=== PATIENT | female | born 1990 | race Asian ===

== ENCOUNTER 2016-07-27 12:13 | Emergency (ER) | payer MEDICAID ==
[2016-07-27 14:51] VITALS: BP 135/62
--- NOTE | 2016-07-29 12:15 | ER ---
DATE SEEN: 07/27/2016 TIME SEEN: The patient was seen at 1230 hours. HISTORY OF PRESENT ILLNESS: The patient has a multiplicity of complaints. A 25 - year-old comes in with history of 1, para 1, single woman with complaints of right shoulder pain, lower back pain, watery vaginal discharge, right posterior iliac crest inferior flank discomfort between the midscapular line and the mid axillary line discomfort. 1) mild right shoulder pain. No unusual heavy lifting or straining. She has a 1 -year old who she carries mostly on her left shoulder and left hip. She notes she has mild myalgia. She is more tired than usual with increased fatigue and has been sleepwalking for the last 2 weeks. 2)She wonders if there is any relationship to the fatigue, to her tiredness, and the muscle and shoulder discomfort in the left arm. She denies paresis, weakness, numbness, shoulder trauma, fall, hyperextension injuries, or [id number] injury with throwing activity. 3) Low back pain. The back pain she describes is right posterolateral flank above the iliac crest from the mid iliac crest to the scapular line. It hurts when she turns or twists. No injury or heavy lifting. No falls. No slipping on the ice. No history of low back pain or pain radiating down the back to her lower extremities. No history of weight loss or difficulty in managing her bladder. No incontinence. She describes the pain is 9/10 and "pulsating" intermittently. It is more increased variable and frequency when she is turning, moving, and active. No history of heavy lifting. No history of renal stones. 4)watery vaginal discharge. No history of recent antibiotics, douching, using unusual condoms, change in food or diet or medication, use of recent antibiotics or multiple sex partners. The watery secretions are not odorous. 5)She denies increased stress. PAST MEDICAL HISTORY: Denies drinking alcohol. Smokes occasionally. She has depression. 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 She is single. Weight is variable, 145 pounds, increases and decreases, but pretty much 145 pounds. REVIEW OF SYSTEMS: She also has, on review of systems, areas to the left of her side of the uatsdin region, anterior uatsdin, about the ocular angle level and approximately 3 cm to 4 cm posterior to the lateral ocular angle, mild tenderness. She is noted to have headaches that seem to occur in this area. PHYSICAL EXAMINATION: VITAL SIGNS: Blood pressure 120/71, heart rate 100, respirations 18, oxygen saturation 97%, and temperature 36.8 degrees centigrade. Weight 65.71 kg. GENERAL: Alert woman. She has quite increased fullness of the face. For her height, seems she is slightly overweight. HEENT: PERRLA intact. Pharynx without abnormality. No thyromegaly or masses in neck. NECK: No cervical adenopathy. LUNGS: Clear to auscultation without rales, rhonchi, or wheezes. HEART: S1, S2. No murmur. Regular rate and rhythm. ABDOMEN: Soft. No guarding. No abdominal discomfort. Mild discomfort to the right lateral mid posterior flank between the mid axillary line to the scapular line and no focal tenderness, mild generalized tenderness. When turning or rotating or bending to the side, the stretching does cause more discomfort. No focal tenderness on the iliac crest or iliac wing. NEUROLOGIC: Deep tendon reflexes normal. Cranial nerves 2 through 12 intact. Strength intact. PELVIC: With nurse present in the room, pelvic exam was performed. The labia are normal in appearance. No unusual swelling or redness. Vaginal mucosa normal appearance. She has significant watery discharge deep within the vagina. This was sent for further evaluation. The nucleic acid studies for Trichomonas and other studies are pending. There were no yeast on the EVAN smear. Other data, uterus is not enlarged. Adnexa without tenderness. Vaginal mucosa looks normal. It is not raw or appearance of sandpaper. LABORATORY FINDINGS: White count 12,200, PMNs 74, lymphs 18, monos 7, and hemoglobin 12.2. Complete metabolic panel normal except for sodium 134, chloride is 98. Slightly elevated AST is 38 and ALT 37. Total protein elevated at 8.2. Urinalysis; large amount of leukocyte esterase, 50-75 wbc's, and moderate bacteria. ASSESSMENT: 1. Probable urinary tract infection. I am going to treat with Septra DS 1 b.i.d. for 5 days. 2. Vaginal fluid, etiology indeterminate. No evidence for yeast on the EVAN smear, but other studies pending. Perhaps Trichomonas or Gardnerella vaginalis is the etiology for the patient's unusual discharge. 3. Mild right shoulder discomfort. 4. Mild low back discomfort. 5. Right lateral flank discomfort secondary to muscle strain, doubt renal stones. There is no hematuria. She does not have to have hematuria to have renal stones. 6. Mildly overweight. PLAN: The patient reassured. ADDITIONAL COMMENT: The father had CVA. Mother of severe hepatitis and cirrhosis. Mother had cirrhosis secondary to alcoholism. The patient has had previous and cholecystectomy. Follow up with doctor in a week. /[id number] CHRIS/SD SAENZ
== END 2016-07-27 14:40 | disposition home or self-care (01) ==
LOC: FB.ED 12:13
DX: N89.8 Other specified noninflammatory disorders of vagina (principal); M25.511 Pain in right shoulder; M54.5 Low back pain; E66.3 Overweight; F32.9 Major depressive disorder, single episode, unspecified
CPT/HCPCS: 36415; 80053; 81001; 81025; 85025; 86140; 87086; 87088; 87186; 87480; 87491; 87510; 87591; 87798; 99283

== ENCOUNTER 2016-08-20 14:04 | Emergency (ER) | payer MEDICAID ==
[2016-08-20] MEDS ORDERED: Ondansetron 4 MG Tab.DIS PO ONE (14:55)
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
[2016-08-20 17:45] VITALS: BP 123/94
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
== END 2016-08-20 16:14 | disposition home or self-care (01) ==
LOC: FB.ED 14:04
DX: A08.4 Viral intestinal infection, unspecified (principal); F41.9 Anxiety disorder, unspecified; F32.9 Major depressive disorder, single episode, unspecified; Z90.49 Acquired absence of other specified parts of digestive tract; Z88.6 Allergy status to analgesic agent; Z88.1 Allergy status to other antibiotic agents
CPT/HCPCS: 76830; 76857; 81025; 99284; A9270

== ENCOUNTER 2017-03-28 06:28 | Emergency (ER) | payer MEDICAID ==
[2017-03-28] MEDS ORDERED: Ondansetron 4 MG/2 ML SDV IVPUSH ONE (06:49)
[2017-03-28] MEDS ORDERED: Sodium Chloride 0.9% 10 ML Syringe FLUSH PRN (06:49)
[2017-03-28 06:51] VITALS: BP 108/73
[2017-03-28] MEDS ORDERED: Sodium Chloride 0.9% 1,000 ML IV SCH (07:00)
--- NOTE | 2017-03-28 07:08 | EDM.PDOC ---
ED HPI GENERAL MEDICAL PROBLEM - General Chief Complaint: General Stated Complaint: WEAKNESSS Time Seen by Provider: 03/28/17 06:46 Source of Information: Reports: Patient History Limitations: Reports: No Limitations - History of Present Illness INITIAL COMMENTS - FREE TEXT/NARRATIVE: 26 years old w f came to the ed due to N/V/D for 4 weeks off and on. Pt states, as soon she eats any kind of food, she vomits. Pt did not see a medical doctor for that as of yet. No dizziness or lightheadedness, however. Pt has mild mid upper abdominal pain. Pt denied , trauma, prev surgeries, travel in the past year. Pt denies other acute medical issues. BP 103/73 pulse 73 temp 36.3 RR 18 O2 100% on RA Onset: Unknown/Unsure Onset Date: 03/02/17 Onset Time: 08:00 Duration: Week(s):, Intermittent Location: Reports: Abdomen Quality: Reports: Burning Severity: Mild Improves with: Reports: Other (not eating ) Worsens with: Reports: Eating Context: Reports: Other (eating any kind of food makes he vomit, the diarrhea) Associated Symptoms: Reports: Nausea/Vomiting Abdominal Pain Score (Numeric/FACES): 5 - Related Data Allergies Allergy/AdvReac Type Severity Reaction Status Date / Time acetaminophen [From Tylenol] Allergy Difficulty Verified 03/28/17 06:43 Swallowing azithromycin [From Zithromax] Allergy Cannot Verified 03/28/17 06:43 Remember ibuprofen Allergy Swelling Verified 03/28/17 06:43 Home Meds: Home Meds ARIPiprazole [Abilify] 10 mg PO DAILY 03/28/17 [History] FLUoxetine [PROzac] 10 mg PO DAILY 03/28/17 [History] Famotidine [Pepcid] 20 mg PO BID #20 tablet 03/28/17 [Rx] Past Medical History - Past Health History Medical/Surgical History: Denies Medical/Surgical History Other HEENT History: Lt eye pain Gastrointestinal History: Reports: Cholelithiasis, Gastritis Genitourinary History: Reports: None [employer] History: Reports: Other OB/BYN History: miscarriage x5, Psychiatric History: Reports: Anxiety, Depression, Psych Hospitalization(s), Other (See Below) Other Psychiatric History: hx of alcohol abuse - Infectious Disease History Infectious Disease History: Reports: Mumps - Past Surgical History HEENT Surgical History: Reports: Oral Surgery Female Surgical History: Reports: Section Social & Family History - Family History Family Medical History: Noncontributory - Tobacco Use Smoking Status *Q: Never Smoker Years of Tobacco use: 0 Used Tobacco, but Quit: No Second Hand Smoke Exposure: No - Caffeine Use Caffeine Use: Reports: None - Alcohol Use Days Per Week of Alcohol Use: 1 Number of Drinks Per Day: 4 Total Drinks Per Week: 4 - Recreational Drug Use Recreational Drug Use: No Drug Use in Last 12 Months: Yes Recreational Drug Type: Reports: Marijuana/Hashish Recreational Drug Last Use: Today - Living Situation & Occupation Living situation: Reports: Single Occupation: Employed ED ROS GENERAL - Review of Systems Review Of Systems: See Below Constitutional: Reports: No Symptoms HEENT: Reports: No Symptoms Respiratory: Reports: No Symptoms Cardiovascular: Reports: No Symptoms Endocrine: Reports: No Symptoms GI/Abdominal: Reports: Diarrhea, Nausea, Vomiting : Reports: No Symptoms Musculoskeletal: Reports: No Symptoms Skin: Reports: No Symptoms Neurological: Reports: No Symptoms Psychiatric: Reports: No Symptoms Hematologic/Lymphatic: Reports: No Symptoms Immunologic: Reports: No Symptoms ED EXAM, GENERAL - Physical Exam Exam: See Below Exam Limited By: No Limitations General Appearance: Alert, WD/WN, Mild Distress Eye Exam: Bilateral Eye: Normal Inspection Ears: Normal External Exam Ear Exam: Bilateral Ear: Auricle Normal Nose: Normal Inspection Throat/Mouth: Normal Inspection, Normal Lips, Normal Teeth Head: Atraumatic, Normocephalic Neck: Normal Inspection, Supple, Non-Tender, Full Range of Motion Respiratory/Chest: No Respiratory Distress, Lungs Clear, Normal Breath Sounds, No Accessory Muscle Use, Chest Non-Tender Cardiovascular: Normal Peripheral Pulses, Regular Rate, Rhythm, No Edema, No Gallop, No JVD, No Murmur, No Rub GI/Abdominal: Normal Bowel Sounds, Soft, Non-Tender, No Organomegaly (Female) Exam: Deferred Rectal (Female) Exam: Deferred Back Exam: Normal Inspection, Full Range of Motion Extremities: Normal Inspection, Normal Range of Motion, Non-Tender, No Pedal Edema, Normal Capillary Refill Neurological: Alert, Oriented, CN II-XII Intact, Normal Cognition, Normal Gait, No Motor/Sensory Deficits Psychiatric: Normal Affect, Normal Mood Skin Exam: Warm, Dry, Intact, Normal Color, No Rash Lymphatic: No Adenopathy Course - Vital Signs Text/Narrative:: 26 years old w f came to the ed due to N/V/D for 4 weeks off and on. Pt states, as soon she eats any kind of food, she vomits. Pt did not see a medical doctor for that as of yet. No dizziness or lightheadedness, however. Pt has mild mid upper abdominal pain. Pt denied , trauma, prev surgeries, travel in the past year. Pt denies other acute medical issues. BP 103/73 pulse 73 temp 36.3 RR 18 O2 100% on RA PE: WNWD W F NAD, did not vomit since here in the ed. mild epig. tenderness Labs: Na 136 K 3.6 Cr.0.6 BUN 8 CBC: WBC 5.6 HGB 11.4 Amylase 46 HCG was neg Imaging: Not indicated Impression: Gastroenteritis, dehydration Tx: NS, Zofran, Pepcid Reexam: Improved Plan: D/C with instructions Last Recorded V/S: Last Vital Signs Temp 36.3 C 03/28/17 06:46 Pulse 73 03/28/17 06:46 Resp 18 03/28/17 06:46 BP 108/73 03/28/17 06:46 Pulse Ox 99 03/28/17 06:46 - Orders/Labs/Meds Orders: Active Orders 24 hr Category Date Time Status Saline Lock Insert [OM.PC] Routine Oth 03/28/17 06:49 Ordered Labs: Laboratory Tests 03/28/17 03/28/17 03/28/17 Range/Units 07:00 07:04 07:04 WBC 5.6 (4.5-12.0) X10-3/uL RBC 4.25 (3.23-5.20) x10(6)uL Hgb 11.4 L (11.5-15.5) g/dL Hct 35.1 (30.0-51.3) % MCV 82.7 (80-96) fL MCH 26.9 L (27.7-33.6) pg MCHC 32.5 (32.2-35.4) g/dL RDW 14.8 (11.5-15.5) % Plt Count 285 (125-369) X10(3)uL MPV 8.1 (7.4-10.4) fL Neut % (Auto) 55.7 (46-82) % Lymph % (Auto) 33.4 (13-37) % Beaver % (Auto) 7.5 (4-12) % Eos % (Auto) 2 (1.0-5.0) % Baso % (Auto) 2 (0-2) % Neut # (Auto) 3.1 (1.6-8.3) # Lymph # (Auto) 1.9 (0.6-5.0) # Beaver # (Auto) 0.4 (0.0-1.3) # Eos # (Auto) 0.1 (0.0-0.8) # Baso # (Auto) 0.1 (0.0-0.2) # Sodium 136 (135-145) mmol/L Potassium 3.6 (3.5-5.3) mmol/L Chloride 103 D (100-110) mmol/L Carbon Dioxide 25 (23-29) mmol/L BUN 8 (5-20) mg/dL Creatinine 0.6 (0.6-1.3) mg/dL Est Cr Clr Drug Dosing 103.85 mL/min Estimated GFR (MDRD) > 60 (>60) BUN/Creatinine Ratio 13.3 (9-20) Glucose 106 (80-116) mg/dL Calcium 8.8 (8.6-10.2) mg/dL Amylase 42 (28-100) U/L Urine HCG, Qual (NEGATIVE) 03/28/17 Range/Units 07:10 WBC (4.5-12.0) X10-3/uL RBC (3.23-5.20) x10(6)uL Hgb (11.5-15.5) g/dL Hct (30.0-51.3) % MCV (80-96) fL MCH (27.7-33.6) pg MCHC (32.2-35.4) g/dL RDW (11.5-15.5) % Plt Count (125-369) X10(3)uL MPV (7.4-10.4) fL Neut % (Auto) (46-82) % Lymph % (Auto) (13-37) % Beaver % (Auto) (4-12) % Eos % (Auto) (1.0-5.0) % Baso % (Auto) (0-2) % Neut # (Auto) (1.6-8.3) # Lymph # (Auto) (0.6-5.0) # Beaver # (Auto) (0.0-1.3) # Eos # (Auto) (0.0-0.8) # Baso # (Auto) (0.0-0.2) # Sodium (135-145) mmol/L Potassium (3.5-5.3) mmol/L Chloride (100-110) mmol/L Carbon Dioxide (23-29) mmol/L BUN (5-20) mg/dL Creatinine (0.6-1.3) mg/dL Est Cr Clr Drug Dosing mL/min Estimated GFR (MDRD) (>60) BUN/Creatinine Ratio (9-20) Glucose (80-116) mg/dL Calcium (8.6-10.2) mg/dL Amylase (28-100) U/L Urine HCG, Qual Negative (NEGATIVE) Meds: Medications Discontinued Medications Generic Name Dose Route Start Last Admin Trade Name Freq PRN Reason Stop Dose Admin Famotidine 20 mg 03/28/17 08:09 03/28/17 08:13 Pepcid PO 03/28/17 08:10 20 mg ONETIME ONE Administration Sodium Chloride 1,000 mls @ 999 mls/hr 03/28/17 07:00 03/28/17 07:03 Normal Saline IV 999 mls/hr ASDIRECTED MARGOT Administration Ondansetron HCl 4 mg 03/28/17 06:49 03/28/17 07:04 Zofran IVPUSH 03/28/17 06:50 4 mg ONETIME ONE Administration Sodium Chloride 10 ml 03/28/17 06:49 03/28/17 07:02 Saline Flush FLUSH 10 ml ASDIRECTED PRN Administration Keep Vein Open Departure - Departure Time of Disposition: 08:09 Disposition: Home, Self-Care 01 Condition: Good Clinical Impression: Gastroenteritis, Dehydration - Discharge Information Prescriptions: Famotidine [Pepcid] 20 mg PO BID #20 tablet Referrals: Kayla Kearney PLUG OVERWRAP MACHINE TENDER [Primary Care Provider] - Forms: ED Department Discharge, ED Return to Work/School Form Additional Instructions: Please advance diet as tolerated, Zofran for nausea, Pepcid for gatsritis, please follow up with your primary physician, come back if your symptoms get worse acutely. - My Orders Last 24 Hours: My Active Orders 03/28/17 06:49 Saline Lock Insert [OM.PC] Routine - Assessment/Plan Last 24 Hours: My Active Orders 03/28/17 06:49 Saline Lock Insert [OM.PC] Routine
[2017-03-28] MEDS ORDERED: Ondansetron 4 MG Tab.DIS PO ONE (07:57)
[2017-03-28] MEDS ORDERED: Famotidine 20 MG Tab PO ONE (08:09)
== END 2017-03-28 08:32 | disposition home or self-care (01) ==
LOC: FB.ED 06:28
DX: K52.9 Noninfective gastroenteritis and colitis, unspecified (principal); E86.0 Dehydration; F32.9 Major depressive disorder, single episode, unspecified; Z79.899 Other long term (current) drug therapy; Z88.1 Allergy status to other antibiotic agents; Z88.6 Allergy status to analgesic agent
CPT/HCPCS: 36415; 80048; 81025; 82150; 85025; 96361; 96374; 99283; A9270; J2405; J7040; J7050

== ENCOUNTER 2017-12-12 12:10 | Emergency (ER) | payer MEDICAID ==
--- NOTE | 2017-12-12 12:22 | EDM.PDOC ---
ED HPI GENERAL MEDICAL PROBLEM - General Stated Complaint: ABDOMINAL PAIN Time Seen by Provider: 12/12/17 12:10 Source of Information: Reports: Patient, Family History Limitations: Reports: No Limitations - History of Present Illness INITIAL COMMENTS - FREE TEXT/NARRATIVE: 27 y.o.w.f came to the was transfered to the ED due to abd. pain. Pt is on the DEPO shot. No N/V/D no trauma. No other acute medical issue BP 114/75 RR 18 Pulse ox 100% on RA Temp 37.0 Pulse 72 Onset Date: 12/11/17 Onset Time: 18:00 Duration: Hour(s):, Intermittent Location: Reports: Pelvis Quality: Reports: Dull, Pressure, Throbbing Severity: Moderate Improves with: Reports: Rest Worsens with: Reports: Movement Context: Reports: Other Associated Symptoms: Reports: No Other Symptoms whole abdomen Pain Score (Numeric/FACES): 8 - Related Data Allergies Allergy/AdvReac Type Severity Reaction Status Date / Time azithromycin [From Zithromax] Allergy Cannot Verified 12/12/17 12:45 Remember Home Meds: Home Meds Ciprofloxacin HCl [Cipro] 500 mg PO BID #20 tablet 12/12/17 [Rx] Phenazopyridine HCl [Pyridium] 100 mg PO Q8HR #9 tablet 12/12/17 [Rx] Past Medical History - Past Health History Medical/Surgical History: Denies Medical/Surgical History HEENT History: Reports: Other (See Below) Other HEENT History: Lt eye pain Gastrointestinal History: Reports: Cholelithiasis, Gastritis Genitourinary History: Reports: None WEB SIZER History: Reports: Other WEB SIZER History: miscarriage x5, Psychiatric History: Reports: Anxiety, Depression, Psych Hospitalization(s), Other (See Below) Other Psychiatric History: hx of alcohol abuse - Infectious Disease History Infectious Disease History: Reports: Mumps - Past Surgical History HEENT Surgical History: Reports: Oral Surgery Female Surgical History: Reports: Section Social & Family History - Family History Family Medical History: Noncontributory - Caffeine Use Caffeine Use: Reports: None - Living Situation & Occupation Living situation: Reports: Single Occupation: Employed ED ROS GENERAL - Review of Systems Review Of Systems: See Below Constitutional: Reports: No Symptoms HEENT: Reports: No Symptoms Respiratory: Reports: No Symptoms Cardiovascular: Reports: No Symptoms Endocrine: Reports: No Symptoms GI/Abdominal: Reports: Abdominal Pain : Reports: Dysuria Musculoskeletal: Reports: No Symptoms Skin: Reports: No Symptoms Neurological: Reports: No Symptoms Psychiatric: Reports: No Symptoms Hematologic/Lymphatic: Reports: No Symptoms Immunologic: Reports: No Symptoms ED EXAM, GI/ABD - Physical Exam Exam: See Below Exam Limited By: No Limitations General Appearance: Alert, WD/WN, Mild Distress Eyes: Bilateral: Normal Appearance Ears: Normal External Exam Nose: Normal Inspection Throat/Mouth: Normal Inspection Head: Atraumatic, Normocephalic Neck: Normal Inspection, Supple, Non-Tender, Full Range of Motion Respiratory/Chest: No Respiratory Distress, Lungs Clear, Normal Breath Sounds, No Accessory Muscle Use, Chest Non-Tender Cardiovascular: Normal Peripheral Pulses, Regular Rate, Rhythm, No Edema, No Gallop, No Murmur GI/Abdominal Exam: Normal Bowel Sounds, Soft, Non-Tender, No Organomegaly, No Distention, No Abnormal Bruit, No Mass, Other (LLQ abd. pain) (Female) Exam: Deferred Rectal (Female) Exam: Deferred Back Exam: Normal Inspection, Full Range of Motion Extremities: Normal Inspection, Normal Range of Motion, Non-Tender, No Pedal Edema Neurological: Alert, Oriented, CN II-XII Intact Psychiatric: Normal Affect, Normal Mood Skin Exam: Warm, Dry, Intact, Normal Color, No Rash Lymphatic: No Adenopathy Course - Vital Signs Text/Narrative:: 27 y.o.w.f came to the UC was transfered to the ED due to abd. pain. Pt is on the DEPO shot. No N/V/D no trauma. No other acute medical issue BP 114/75 RR 18 Pulse ox 100% on RA Temp 37.0 Pulse 72 Labs: CBC, BMP and UPT were neg. UA was pos for UTI Impression: UTI Th: Pyridium, Cipr Reexam: Improved Plan: D/C with instructions Last Recorded V/S: Last Vital Signs Temp 36.6 C 12/12/17 14:00 Pulse 82 12/12/17 14:00 Resp 17 12/12/17 14:00 BP 113/76 12/12/17 14:00 Pulse Ox 100 12/12/17 14:00 - Orders/Labs/Meds Orders: Active Orders 24 hr Category Date Time Status CULTURE URINE [RM] Stat Lab 12/12/17 12:25 Ordered DRUG SCREEN, URINE ALERE [URCHEM] Stat Lab 12/12/17 12:25 Ordered HCG QUALITATIVE,URINE [URCHEM] Stat Lab 12/12/17 12:25 Ordered UA W/MICROSCOPIC [URIN] Stat Lab 12/12/17 12:25 Ordered Impression: Labs: Laboratory Tests 12/12/17 12/12/17 12/12/17 Range/Units 12:25 12:25 12:25 WBC 7.5 (4.5-12.0) X10-3/uL RBC 4.76 (3.23-5.20) x10(6)uL Hgb 13.8 (11.5-15.5) g/dL Hct 41.4 (30.0-51.3) % MCV 87.1 (80-96) fL MCH 29.1 (27.7-33.6) pg MCHC 33.4 (32.2-35.4) g/dL RDW 13.9 (11.5-15.5) % Plt Count 283 (125-369) X10(3)uL MPV 7.8 (7.4-10.4) fL Neut % (Auto) 55.0 (46-82) % Lymph % (Auto) 35.9 (13-37) % [place] % (Auto) 6.5 (4-12) % Eos % (Auto) 1 (1.0-5.0) % Baso % (Auto) 1 (0-2) % Neut # (Auto) 4.1 (1.6-8.3) # Lymph # (Auto) 2.7 (0.6-5.0) # [place] # (Auto) 0.5 (0.0-1.3) # Eos # (Auto) 0.1 (0.0-0.8) # Baso # (Auto) 0.1 (0.0-0.2) # Sodium (135-145) mmol/L Potassium (3.5-5.3) mmol/L Chloride (100-110) mmol/L Carbon Dioxide (21-32) mmol/L BUN (7-18) mg/dL Creatinine (0.55-1.02) mg/dL Est Cr Clr Drug Dosing mL/min Estimated GFR (MDRD) (>60) BUN/Creatinine Ratio (9-20) Glucose (80-116) mg/dL Lactic Acid (0.4-2.2) mmol/L Calcium (8.6-10.2) mg/dL Amylase (25-115) U/L Urine Color Yellow (YELLOW) Urine Appearance Slightly cloudy (CLEAR) Urine pH 7.0 H (5.0-6.5) Ur Specific [place] 1.010 (1.010-1.025) Urine Protein Negative (NEGATIVE) mg/dL Urine Glucose (UA) Normal (NEGATIVE) mg/dL Urine Ketones Negative (NEGATIVE) mg/dL Urine Occult Blood Negative (NEGATIVE) Urine Nitrite Positive H (NEGATIVE) Urine Bilirubin Negative (NEGATIVE) Urine Urobilinogen Normal (NEGATIVE) mg/dL Ur Leukocyte Esterase Moderate H (NEGATIVE) Urine WBC 10-20 H (0) Ur Squamous Epith Cells Few H (NS,R,O) Urine Bacteria Many H (NS) Urine HCG, Qual Negative (NEGATIVE) Urine Opiates Screen (NEGATIVE) Ur Oxycodone Screen (NEGATIVE) Ur Propoxyphene Screen (NEGATIVE) Ur Barbituates Screen (NEGATIVE) Ur Tricyclics Screen (NEGATIVE) Ur Phencyclidine Scrn (NEGATIVE) Ur Amphetamine Screen (NEGATIVE) Urine MDMA Screen (NEGATIVE) U Benzodiazepines Scrn (NEGATIVE) U Cocaine Metab Screen (NEGATIVE) U Marijuana (THC) Screen (NEGATIVE) 12/12/17 12/12/17 12/12/17 Range/Units 12:25 12:25 12:30 WBC (4.5-12.0) X10-3/uL RBC (3.23-5.20) x10(6)uL Hgb (11.5-15.5) g/dL Hct (30.0-51.3) % MCV (80-96) fL MCH (27.7-33.6) pg MCHC (32.2-35.4) g/dL RDW (11.5-15.5) % Plt Count (125-369) X10(3)uL MPV (7.4-10.4) fL Neut % (Auto) (46-82) % Lymph % (Auto) (13-37) % [place] % (Auto) (4-12) % Eos % (Auto) (1.0-5.0) % Baso % (Auto) (0-2) % Neut # (Auto) (1.6-8.3) # Lymph # (Auto) (0.6-5.0) # [place] # (Auto) (0.0-1.3) # Eos # (Auto) (0.0-0.8) # Baso # (Auto) (0.0-0.2) # Sodium 137 (135-145) mmol/L Potassium 3.9 (3.5-5.3) mmol/L Chloride 102 (100-110) mmol/L Carbon Dioxide 25 (21-32) mmol/L BUN 13 (7-18) mg/dL Creatinine 0.7 (0.55-1.02) mg/dL Est Cr Clr Drug Dosing 88.25 mL/min Estimated GFR (MDRD) > 60 (>60) BUN/Creatinine Ratio 18.6 (9-20) Glucose 104 (80-116) mg/dL Lactic Acid (0.4-2.2) mmol/L Calcium 9.0 (8.6-10.2) mg/dL Amylase 42 (25-115) U/L Urine Color (YELLOW) Urine Appearance (CLEAR) Urine pH (5.0-6.5) Ur Specific [place] (1.010-1.025) Urine Protein (NEGATIVE) mg/dL Urine Glucose (UA) (NEGATIVE) mg/dL Urine Ketones (NEGATIVE) mg/dL Urine Occult Blood (NEGATIVE) Urine Nitrite (NEGATIVE) Urine Bilirubin (NEGATIVE) Urine Urobilinogen (NEGATIVE) mg/dL Ur Leukocyte Esterase (NEGATIVE) Urine WBC (0) Ur Squamous Epith Cells (NS,R,O) Urine Bacteria (NS) Urine HCG, Qual (NEGATIVE) Urine Opiates Screen Negative (NEGATIVE) Ur Oxycodone Screen Negative (NEGATIVE) Ur Propoxyphene Screen Negative (NEGATIVE) Ur Barbituates Screen Negative (NEGATIVE) Ur Tricyclics Screen Negative (NEGATIVE) Ur Phencyclidine Scrn Negative (NEGATIVE) Ur Amphetamine Screen Negative (NEGATIVE) Urine MDMA Screen Negative (NEGATIVE) U Benzodiazepines Scrn Negative (NEGATIVE) U Cocaine Metab Screen Negative (NEGATIVE) U Marijuana (THC) Screen Negative (NEGATIVE) 12/12/17 Range/Units 12:30 WBC (4.5-12.0) X10-3/uL RBC (3.23-5.20) x10(6)uL Hgb (11.5-15.5) g/dL Hct (30.0-51.3) % MCV (80-96) fL MCH (27.7-33.6) pg MCHC (32.2-35.4) g/dL RDW (11.5-15.5) % Plt Count (125-369) X10(3)uL MPV (7.4-10.4) fL Neut % (Auto) (46-82) % Lymph % (Auto) (13-37) % [place] % (Auto) (4-12) % Eos % (Auto) (1.0-5.0) % Baso % (Auto) (0-2) % Neut # (Auto) (1.6-8.3) # Lymph # (Auto) (0.6-5.0) # [place] # (Auto) (0.0-1.3) # Eos # (Auto) (0.0-0.8) # Baso # (Auto) (0.0-0.2) # Sodium (135-145) mmol/L Potassium (3.5-5.3) mmol/L Chloride (100-110) mmol/L Carbon Dioxide (21-32) mmol/L BUN (7-18) mg/dL Creatinine (0.55-1.02) mg/dL Est Cr Clr Drug Dosing mL/min Estimated GFR (MDRD) (>60) BUN/Creatinine Ratio (9-20) Glucose (80-116) mg/dL Lactic Acid 1.0 (0.4-2.2) mmol/L Calcium (8.6-10.2) mg/dL Amylase (25-115) U/L Urine Color (YELLOW) Urine Appearance (CLEAR) Urine pH (5.0-6.5) Ur Specific [place] (1.010-1.025) Urine Protein (NEGATIVE) mg/dL Urine Glucose (UA) (NEGATIVE) mg/dL Urine Ketones (NEGATIVE) mg/dL Urine Occult Blood (NEGATIVE) Urine Nitrite (NEGATIVE) Urine Bilirubin (NEGATIVE) Urine Urobilinogen (NEGATIVE) mg/dL Ur Leukocyte Esterase (NEGATIVE) Urine WBC (0) Ur Squamous Epith Cells (NS,R,O) Urine Bacteria (NS) Urine HCG, Qual (NEGATIVE) Urine Opiates Screen (NEGATIVE) Ur Oxycodone Screen (NEGATIVE) Ur Propoxyphene Screen (NEGATIVE) Ur Barbituates Screen (NEGATIVE) Ur Tricyclics Screen (NEGATIVE) Ur Phencyclidine Scrn (NEGATIVE) Ur Amphetamine Screen (NEGATIVE) Urine MDMA Screen (NEGATIVE) U Benzodiazepines Scrn (NEGATIVE) U Cocaine Metab Screen (NEGATIVE) U Marijuana (THC) Screen (NEGATIVE) Meds: Medications Discontinued Medications Generic Name Dose Route Start Last Admin Trade Name Freq PRN Reason Stop Dose Admin Ciprofloxacin 500 mg 12/12/17 13:45 12/12/17 13:55 Ciprofloxacin Hcl PO 12/12/17 13:46 500 mg ONETIME ONE Administration Levofloxacin 500 mg 12/12/17 13:41 12/12/17 13:47 Levaquin PO 12/12/17 13:42 Not Given ONETIME STA Phenazopyridine HCl 95 mg 12/12/17 13:43 12/12/17 13:55 Urinary Pain Relief PO 12/12/17 13:44 95 mg ONETIME STA Administration Departure - Departure Time of Disposition: 13:46 Disposition: Home, Self-Care 01 Condition: Good ([place]) Clinical Impression: UTI (urinary tract infection) - Discharge Information Prescriptions: Phenazopyridine HCl [Pyridium] 100 mg PO Q8HR #9 tablet Ciprofloxacin HCl [Cipro] 500 mg PO BID #20 tablet Instructions: Phenazopyridine tablets, Urinary Tract Infection, Adult, Ciprofloxacin tablets Referrals: Kayla Kearney NP [Primary Care Provider] - Forms: ED Department Discharge Additional Instructions: Please increase water intake, Please take the meds as recommended, please f/u, come back if your symptoms get worse acutely. - My Orders Last 24 Hours: My Active Orders 12/12/17 12:25 CULTURE URINE [RM] Stat DRUG SCREEN, URINE ALERE [URCHEM] Stat HCG QUALITATIVE,URINE [URCHEM] Stat UA W/MICROSCOPIC [URIN] Stat - Assessment/Plan Last 24 Hours: My Active Orders 12/12/17 12:25 CULTURE URINE [RM] Stat DRUG SCREEN, URINE ALERE [URCHEM] Stat HCG QUALITATIVE,URINE [URCHEM] Stat UA W/MICROSCOPIC [URIN] Stat
[2017-12-12] MEDS ORDERED: Levofloxacin 500 MG Tab PO STA (13:41)
[2017-12-12] MEDS ORDERED: Phenazopyridine 95 MG Tab PO STA (13:43)
[2017-12-12] MEDS ORDERED: Ciprofloxacin 500 MG Tab PO ONE (13:45)
[2017-12-12 14:02] VITALS: BP 113/76
== END 2017-12-12 14:00 | disposition home or self-care (01) ==
LOC: FB.ED 12:10
DX: N39.0 Urinary tract infection, site not specified (principal); Z88.1 Allergy status to other antibiotic agents
CPT/HCPCS: 36415; 80048; 80305; 81001; 81025; 82150; 83605; 85025; 85027; 87086; 87088; 87186; 99284; A9270

== ENCOUNTER 2018-09-04 12:21 | Emergency (ER) | payer MEDICARE, MEDICAID ==
--- NOTE | 2018-09-04 12:37 | EDM.PDOC ---
ED HPI GENERAL MEDICAL PROBLEM - General Stated Complaint: VAGINAL BLEED Time Seen by Provider: 09/04/18 12:21 Source of Information: Reports: Patient, Family History Limitations: Reports: No Limitations - History of Present Illness INITIAL COMMENTS - FREE TEXT/NARRATIVE: 27 y.o.w f came to the UC clinic because of Vag bleed and left sided pelvic pain , which started after sexual intercourse last night. Pt is an a BC pill which she does not take on regular basis. No N/V/D no dizziness. Pt was transferred to the ED for further evaluation. HCG was neg. Last Nl menstrual period was 08/28. Last pelvic US was on 2017. Pt changed her pad once since last night. no F/C or any other acute med issues. BP 112/69 RR 18 Pulse ox 98% on RA Pulse 88 Temp 36.7 Onset Date: 09/03/18 Onset Time: 20:00 Duration: Hour(s):, Intermittent Location: Reports: Pelvis Quality: Reports: Dull, Pressure Severity: Moderate Improves with: Reports: None Worsens with: Reports: Other (Sexual intercourse) Context: Reports: Other (Pain and vag bleed after sex intercourse.) Associated Symptoms: Reports: Other Abdomen Pain Score (Numeric/FACES): 9 - Related Data Allergies Allergy/AdvReac Type Severity Reaction Status Date / Time azithromycin [From Zithromax] Allergy Cannot Verified 12/12/17 12:45 Remember Past Medical History - Past Health History Medical/Surgical History: Denies Medical/Surgical History HEENT History: Reports: Other (See Below) Other HEENT History: Lt eye pain Gastrointestinal History: Reports: Cholelithiasis, Gastritis Genitourinary History: Reports: None CYTOPATHOLOGIST History: Reports: Other CYTOPATHOLOGIST History: miscarriage x5, Psychiatric History: Reports: Anxiety, Depression, Psych Hospitalization(s), Other (See Below) Other Psychiatric History: hx of alcohol abuse - Infectious Disease History Infectious Disease History: Reports: Mumps - Past Surgical History HEENT Surgical History: Reports: Oral Surgery Female Surgical History: Reports: Section Social & Family History - Family History Family Medical History: Noncontributory - Caffeine Use Caffeine Use: Reports: None - Living Situation & Occupation Living situation: Reports: Single Occupation: Employed ED ROS GENERAL - Review of Systems Review Of Systems: See Below Constitutional: Reports: No Symptoms HEENT: Reports: No Symptoms Respiratory: Reports: No Symptoms Cardiovascular: Reports: No Symptoms Endocrine: Reports: No Symptoms GI/Abdominal: Reports: No Symptoms : Reports: No Symptoms, Other (left lower abd. pain, vag bleed.) Musculoskeletal: Reports: No Symptoms Skin: Reports: No Symptoms Neurological: Reports: No Symptoms Psychiatric: Reports: No Symptoms Hematologic/Lymphatic: Reports: No Symptoms Immunologic: Reports: No Symptoms ED EXAM - Physical Exam Exam: See Below Exam Limited By: No Limitations General Appearance: Alert, WD/WN, Mild Distress Eye Exam: Bilateral Eye: Normal Inspection Ears: Normal External Exam Nose: Normal Inspection Throat/Mouth: Normal Inspection, Normal Lips, Normal Voice, No Airway Compromise Head: Atraumatic, Normocephalic Neck: Normal Inspection, Supple, Non-Tender, Full Range of Motion Respiratory/Chest: No Respiratory Distress, Lungs Clear, Normal Breath Sounds, Chest Non-Tender Cardiovascular: Normal Peripheral Pulses, Regular Rate, Rhythm, No Edema, No Gallop, No JVD, No Murmur, No Rub GI/Abdominal Exam: Normal Bowel Sounds, Soft, Non-Tender, No Organomegaly, No Distention, No Abnormal Bruit, No Mass, Pelvis Stable Rectal Exam: Deferred (Female) Exam: Normal External Exam, Adnexal Tenderness (left), Cervical Dilatation, Cervix Motion Tenderness, Vaginal Bleeding Back Exam: Normal Inspection, Full Range of Motion Extremities: Normal Inspection Neurological: Alert, Oriented, CN II-XII Intact, Normal Cognition, Normal Gait Psychiatric: Normal Affect, Normal Mood Skin Exam: Warm, Dry, Intact, Normal Color Lymphatic: No Adenopathy Course - Vital Signs Text/Narrative:: 27 y.o.w f came to the UC clinic because of Vag bleed and left sided pelvic pain , which started after sexual intercourse last night. Pt is an a BC pill which she does not take on regular basis. No N/V/D no dizziness. Pt was transferred to the ED for further evaluation. HCG was neg. Last Nl menstrual period was 08/28. Last pelvic US was on 2017. Pt changed her pad once since last night. no F/C or any other acute med issues. BP 112/69 RR 18 Pulse ox 98% on RA Pulse 88 Temp 36.7 PE: WNWD pale appearing female with painful vag bleed. Imaging: Pelvic US: Same as the US in May 2018, no mass, no cyst. There is blood in the uterus, however. Labs: CBC was nl at the , UA showed hematuria, most likely contaminated from the Vag bleed. Pelvic exam: Please see note above Impression: Vag bleed pos due to non compliance with control pills. Left adnexa tenderness (US nl, cause?) 1.31 PM Consultation: Dr. Calderón, CYTOPATHOLOGIST [facility]: Bleeding could be the cause of not taking the BC pill on the regular basis, Pelvic US recommended, F/ U with Dr. Art, if needed. Pt was doing fine here in the ED Plan: D/C with instructions Last Recorded V/S: Last Vital Signs Temp 36.9 C 09/04/18 15:06 Pulse 79 09/04/18 15:06 Resp 16 09/04/18 15:06 BP 115/82 09/04/18 15:06 Pulse Ox 99 09/04/18 15:06 - Orders/Labs/Meds Orders: Active Orders 24 hr Category Date Time Status Pelvis Non OB Ltd [US] Stat Exams 09/04/18 13:54 Ordered Transvaginal Non OB [US] Stat Exams 09/04/18 13:54 Ordered CHLAMYDIA/GC AMPLIFICATION Urgent Lab 09/04/18 13:00 Received Labs: Laboratory Tests 09/04/18 Range/Units 13:00 Urine Color Yellow (YELLOW) Urine Appearance Clear (CLEAR) Urine pH 7.0 H (5.0-6.5) Ur Specific [place] 1.015 (1.010-1.025) Urine Protein Negative (NEGATIVE) mg/dL Urine Glucose (UA) Normal (NORMAL) mg/dL Urine Ketones Negative (NEGATIVE) mg/dL Urine Occult Blood Large H (NEGATIVE) Urine Nitrite Negative (NEGATIVE) Urine Bilirubin Negative (NEGATIVE) Urine Urobilinogen Normal (NEGATIVE) mg/dL Ur Leukocyte Esterase Negative (NEGATIVE) Urine RBC 10-20 H (0-5) Urine WBC 0-5 (0-5) Ur Squamous Epith Cells Occasional (NS,R,O) Urine Bacteria Few H (NS) Departure - Departure Time of Disposition: 14:46 Disposition: Home, Self-Care 01 Condition: Good Clinical Impression: Vaginal bleeding between periods - Discharge Information Instructions: Abnormal Uterine Bleeding Referrals: Kayla Kearney NP [Primary Care Provider] - Forms: ED Department Discharge Additional Instructions: Please take the BC pill every days as recommended, please do not miss a dose.please take Motin for pain, please f/u, come back if your symptoms get worse acutely - My Orders Last 24 Hours: My Active Orders 09/04/18 13:00 CHLAMYDIA/GC AMPLIFICATION Urgent 09/04/18 13:54 Pelvis Non OB Ltd [US] Stat Transvaginal Non OB [US] Stat - Assessment/Plan Last 24 Hours: My Active Orders 09/04/18 13:00 CHLAMYDIA/GC AMPLIFICATION Urgent 09/04/18 13:54 Pelvis Non OB Ltd [US] Stat Transvaginal Non OB [US] Stat
[2018-09-04 15:09] VITALS: BP 115/82
--- NOTE | 2018-09-06 11:52 | US ---
INDICATION: Left adnexal tenderness. INDICATION FOR TRANSVAGINAL: Left adnexal tenderness/need better visualization of the uterus and adnexa than was possible with the transabdominal probe. ULTRASOUND OF PELVIS, LIMITED, NON-OB/TRANSVAGINAL PELVIC ULTRASOUND, NON-OB: Utilizing transabdominal probe initially and then transvaginal probe to better visualize the uterus and adnexal areas, multiple ultrasonic images were obtained 09/04/18 and compared with 05/06/18. The uterus measured 7.5 x 4.2 x 4.8 cm with endometrial cavity echo of approximately 7.6 mm. There is what appears to be a very prominent scar in the anterior lower uterine segment, which is filled with fluid. There is fluid adjacent to that area in the endometrial cavity of the lower uterine segment and apparently extending into the cervix. Would question the possibility of bleeding and/or infection with this appearance. No definite uterine mass was seen. There is some irregularity of the endometrial cavity in the body of the uterus with this appearance appearing relatively new - was not definitely visualized on the previous study from . The scar was also less prominent on that previous study, and although there was some fluid in that area on the previous study, there is more fluid in that area currently. There are also noted multiple low density lesions in the cervix, compatible with Nabothian cysts, the largest of which measured approximately 6.6 mm. It is difficult to exclude an abscess with this appearance, however. The right ovary had a volume of 6.9 mL, measuring 2.2 x 2.6 x 2.3 cm. The left ovary had a volume of 7.27 mL, measuring 3.1 x 1.4 x 3.2 cm. Follicles are noted in both ovaries with relatively minimal follicles on the left and numerous follicles at the right ovary. The follicles in the left ovary appear relatively irregular and may represent involuting follicles. Pain was most prominent overlying the left ovary. IMPRESSION: 1. Tender left ovary with relatively irregular appearing follicles, which may be involuting. Followup may be warranted. No gross adnexal mass lesion or free fluid collection was seen, however. 2. Fluid in the endometrial cavity with a very prominent apparent scar in the lower anterior myometrium. The fluid present may be on the basis of bleeding site and/or infection and should be correlated clinically. There is also fluid in the endocervical canal. Some of these findings were present but to a lesser extent on the previous study from May. There are also Nabothian cysts, which are of questionable significance, with the possibility of one relatively more prominent cyst 6.6 mm, representing an infection or simply increased size of that Nabothian cyst. [facility]
[2018-09-08 08:21] LABS: CHLAMYDIA TRACHOMATIS, NAA Negative (Negative); NEISSERIA GONORRHOEAE, NAA Negative (Negative)
== END 2018-09-04 15:07 | disposition home or self-care (01) ==
LOC: FB.ED 12:21
DX: N93.9 Abnormal uterine and vaginal bleeding, unspecified (principal); Z88.1 Allergy status to other antibiotic agents
CPT/HCPCS: 76830; 76857; 81001; 87210; 87491; 87591; 99284-25

== ENCOUNTER 2018-10-25 18:30 | Emergency (ER) | payer MEDICARE, MEDICAID ==
--- NOTE | 2018-10-25 18:53 | EDM.PDOC ---
ED HPI GENERAL MEDICAL PROBLEM - General Chief Complaint: Abdominal Pain Stated Complaint: NO BOWEL MOVEMENT IN AWHILE Time Seen by Provider: 10/25/18 18:51 Source of Information: Reports: Patient History Limitations: Reports: No Limitations - History of Present Illness INITIAL COMMENTS - FREE TEXT/NARRATIVE: Abd pain,constipation x 2 weeks.Associated with obstipation,and vomiting since this morning.Has tried enemas,Xlax,Metamucil with no relief. Has had C section and Gall bladder surgery Abdomen Pain Score (Numeric/FACES): 5 - Related Data Allergies Allergy/AdvReac Type Severity Reaction Status Date / Time acetaminophen [From Tylenol] Allergy Other Verified 10/25/18 18:42 azithromycin [From Zithromax] Allergy Cannot Verified 10/25/18 18:42 Remember ibuprofen Allergy Other Verified 10/25/18 18:42 Home Meds: Home Meds ARIPiprazole [Abilify] 10 mg PO DAILY 10/25/18 [History] [place] Carbonate 300 mg PO DAILY 10/25/18 [History] [place] Carbonate 600 mg PO DAILY 10/25/18 [History] Past Medical History - Past Health History Medical/Surgical History: Denies Medical/Surgical History HEENT History: Reports: Other (See Below) Other HEENT History: Lt eye pain Gastrointestinal History: Reports: Cholelithiasis, Gastritis Genitourinary History: Reports: None 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 GOODS PLANNER History: Reports: Other FINISHED GOODS PLANNER History: miscarriage x5, Psychiatric History: Reports: Anxiety, Depression, Psych Hospitalization(s), Other (See Below) Other Psychiatric History: hx of alcohol abuse - Infectious Disease History Infectious Disease History: Reports: Mumps - Past Surgical History HEENT Surgical History: Reports: Oral Surgery Female Surgical History: Reports: Section Social & Family History - Family History Family Medical History: Noncontributory - Caffeine Use Caffeine Use: Reports: None - Living Situation & Occupation Living situation: Reports: Single Occupation: Employed ED ROS GENERAL - Review of Systems Review Of Systems: ROS reveals no pertinent complaints other than HPI. ED EXAM, GI/ABD - Physical Exam Exam: See Below Exam Limited By: No Limitations General Appearance: Alert, Mild Distress Ears: Normal External Exam Neck: Normal Inspection Respiratory/Chest: No Respiratory Distress Cardiovascular: Regular Rate, Rhythm GI/Abdominal Exam: Soft, No Mass, Distended, Tender. No: Normal Bowel Sounds, Hepatomegaly, Splenomegaly Course - Vital Signs Last Recorded V/S: Last Vital Signs Temp 97.6 F 10/25/18 21:48 Pulse 90 10/25/18 21:48 Resp 16 10/25/18 21:48 BP 114/83 10/25/18 21:48 Pulse Ox 100 10/25/18 21:48 - Orders/Labs/Meds Orders: Active Orders 24 hr Category Date Time Status Abdomen Pelvis w Cont [CT] Stat Exams 10/25/18 18:50 Taken Labs: Laboratory Tests 10/25/18 10/25/18 10/25/18 Range/Units 18:58 18:58 18:58 WBC 9.2 (4.5-12.0) X10-3/uL RBC 4.50 (3.23-5.20) x10(6)uL Hgb 13.9 (11.5-15.5) g/dL Hct 40.2 (30.0-51.3) % MCV 89.3 (80-96) fL MCH 31.0 (27.7-33.6) pg MCHC 34.7 (32.2-35.4) g/dL RDW 13.2 (11.5-15.5) % Plt Count 317 (125-369) X10(3)uL MPV 7.9 (7.4-10.4) fL Neut % (Auto) 69.3 (46-82) % Lymph % (Auto) 24.3 (13-37) % Whitman % (Auto) 5.6 (4-12) % Eos % (Auto) 1 (1.0-5.0) % Baso % (Auto) 0 (0-2) % Neut # (Auto) 6.4 (1.6-8.3) # Lymph # (Auto) 2.2 (0.6-5.0) # Whitman # (Auto) 0.5 (0.0-1.3) # Eos # (Auto) 0.1 (0.0-0.8) # Baso # (Auto) 0.0 (0.0-0.2) # Sodium 140 (135-145) mmol/L Potassium 3.8 (3.5-5.3) mmol/L Chloride 101 (100-110) mmol/L Carbon Dioxide 30 (21-32) mmol/L BUN 5 L (7-18) mg/dL Creatinine 0.7 (0.55-1.02) mg/dL Est Cr Clr Drug Dosing TNP Estimated GFR (MDRD) > 60 (>60) BUN/Creatinine Ratio 7.1 L (9-20) Glucose 102 (80-116) mg/dL Lactic Acid 0.7 (0.4-2.2) mmol/L Calcium 9.6 (8.6-10.2) mg/dL Total Bilirubin 0.3 (0.1-1.3) mg/dL AST 16 (5-25) IU/L ALT 20 (12-36) U/L Alkaline Phosphatase 84 (56-112) IU/L Total Protein 7.9 (6.0-8.0) g/dL Albumin 3.9 (3.5-5.2) g/dL Globulin 4.0 g/dL Albumin/Globulin Ratio 1.0 Meds: Medications Discontinued Medications Generic Name Dose Route Start Last Admin Trade Name Freq PRN Reason Stop Dose Admin Diatrizoate Meglum/Diatrizoate Sod 30 ml 10/25/18 19:30 10/25/18 20:45 Gastrografin 37% PO 30 ml ASDIRECTED MARGOT Administration Iopamidol 75 ml 10/25/18 19:17 10/25/18 20:45 Isovue-370 (76%) IV 10/25/18 19:18 67 ml ASDIRECTED ONE Administration Magnesium Citrate 296 ml 10/25/18 21:41 10/25/18 21:44 Citrate Of Magnesia PO 10/25/18 21:42 296 ml ONETIME ONE Administration Sodium Biphosphate/Sodium Phosphate 133 ml 10/25/18 21:39 10/25/18 21:41 Fleet Enema RECTAL 10/25/18 21:40 Not Given ONETIME ONE Departure - Departure Time of Disposition: 23:50 Disposition: Home, Self-Care 01 Condition: Good Clinical Impression: Abdominal pain - Discharge Information Instructions: Constipation, Adult, [id number], Ovarian Cyst, Alke-st-Ragi Referrals: Kayla Kearney JOURNEY[employer] P[employer]ELDER [Primary Care Provider] - Forms: ED Department Discharge Additional Instructions: Follow-up with OBGYN as scheduled. - Problem List & Annotations (1) Constipation SNOMED Code(s): 39039725 Code(s): K59.00 - CONSTIPATION, UNSPECIFIED Status: Acute Qualifiers: Constipation type: slow transit constipation Qualified Code(s): K59.01 - Slow transit constipation (2) Ovarian cyst SNOMED Code(s): 64393822 Code(s): N83.209 - UNSPECIFIED OVARIAN CYST, UNSPECIFIED SIDE Status: Acute (3) Abdominal pain SNOMED Code(s): 16465992 Code(s): R10.9 - UNSPECIFIED ABDOMINAL PAIN Status: Acute - Problem List Review Problem List Initiated/Reviewed/Updated: Yes - My Orders Last 24 Hours: My Active Orders 10/25/18 18:50 Abdomen Pelvis w Cont [CT] Stat - Assessment/Plan Last 24 Hours: My Active Orders 10/25/18 18:50 Abdomen Pelvis w Cont [CT] Stat Plan: Trial of saline enema.Declined.Magnesium citrate was then given to try at home. Advised to follow up with OBGYN about the cyst.She has an appt already.
[2018-10-25] MEDS ORDERED: Iopamidol 755 Mg/ML 75 ML Bottle IV ONE (19:17)
[2018-10-25] MEDS ORDERED: Diatrizoate Meglumine/Diatrizoate Sodium 37% 30 ML Bottle PO SCH (19:30)
[2018-10-25] MEDS: Sodium Phosphate,Monobasic/Sodium Phosphate,Dibasic Enema 133 ML Bottle RECTAL ONE ×2 (21:40→21:41)
[2018-10-25] MEDS ORDERED: Magnesium Citrate Solution 296 ML Bottle PO ONE (21:41)
[2018-10-25 21:53] VITALS: BP 114/83
== END 2018-10-25 21:51 | disposition home or self-care (01) ==
LOC: FB.ED 18:30
DX: R10.9 Unspecified abdominal pain (principal); F41.9 Anxiety disorder, unspecified; F32.9 Major depressive disorder, single episode, unspecified; Z79.899 Other long term (current) drug therapy; Z88.6 Allergy status to analgesic agent; Z88.1 Allergy status to other antibiotic agents
CPT/HCPCS: 36415; 74177; 80053; 83605; 85025; 99284; A9270; Q9963; Q9967

== ENCOUNTER 2018-11-06 22:54 | Emergency (ER) | payer MEDICARE, MEDICAID ==
[2018-11-06] MEDS ORDERED: Ketorolac 30 MG/ML SDV IVPUSH ONE (23:20)
[2018-11-06] MEDS ORDERED: Morphine 2 MG/ML Syringe IVPUSH ONE (23:27)
[2018-11-06] MEDS ORDERED: Ondansetron 4 MG/2 ML SDV IVPUSH ONE (23:29)
[2018-11-06] MEDS: Sodium Chloride 0.9% 10 ML Syringe FLUSH PRN (23:55)
[2018-11-07] MEDS ORDERED: Morphine 2 MG/ML Syringe ONE (01:01)
[2018-11-07] MEDS ORDERED: Morphine 2 MG/ML Syringe IVPUSH ONE (01:02)
[2018-11-07] MEDS: Sodium Chloride 0.9% 10 ML Syringe FLUSH PRN ×2 (01:02→02:30)
[2018-11-07] MEDS ORDERED: Ketorolac 30 MG/ML SDV IVPUSH ONE (02:24)
--- NOTE | 2018-11-07 02:31 | EDM.PDOC ---
ED HPI GENERAL MEDICAL PROBLEM - General Chief Complaint: Genitourinary Problem Stated Complaint: lower abdominal pain, history cysts Time Seen by Provider: 11/06/18 23:00 Source of Information: Reports: Patient History Limitations: Reports: No Limitations - History of Present Illness INITIAL COMMENTS - FREE TEXT/NARRATIVE: patient presents with concern for acute onset pain in her lower pelvic area, which has now spread to her back. It started around dinner this evening at 6pm , she has taken midol at 2pm, and again around 7 or 8pm. Menstrual cycle started today with some spotting. Stopped contraception pills one week ago per instructions of primary due to history ovarian cysts. Has had similar pain in the past. I spoke with patient alone after the others left. She was concerned she might be , but did not want to say so in front of others, as he was a former boyfriend who left her for the other woman that was here with them tonight. She denies feeling unsafe or any abuse. She did not take anything additional at home for the pain. She was just recently tested for STDs and found to be negative. She states she has mild nausea, no diarrhea or vomiting, no urinary symptoms, no pain in upper back/flank area, just some low back pain that came on with the abdominal pain tonight. On lithium but hasn't taken in a few days. Accompanied by two friends, a similar aged woman, and a male friend who aggressively kept interrupting during questions and exam to state that she was in severe pain and needed medication immediately. Initially I asked him to please let me talk to the patient and examine her to determine if there was an immediate life threat, and allow us to take care of her. He continued to be difficult and was also interfering with nursing assessment after I left the room , and so was asked to leave. - Related Data Allergies Allergy/AdvReac Type Severity Reaction Status Date / Time acetaminophen [From Tylenol] Allergy Other Verified 11/08/18 08:13 azithromycin [From Zithromax] Allergy Cannot Verified 11/08/18 08:13 Remember ibuprofen Allergy Other Verified 11/08/18 08:13 Home Meds: Home Meds ARIPiprazole [Abilify] 10 mg PO DAILY 10/25/18 [History] [place] Carbonate 300 mg PO DAILY 10/25/18 [History] [place] Carbonate 600 mg PO DAILY 10/25/18 [History] Past Medical History - Past Health History Medical/Surgical History: Denies Medical/Surgical History HEENT History: Reports: Other (See Below) Other HEENT History: Lt eye pain Gastrointestinal History: Reports: Cholelithiasis, Gastritis Genitourinary History: Reports: None 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: , Other (See Below) (ovarian cysts per patient report) 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 SERVER PROGRAMMER History: miscarriage x5, Psychiatric History: Reports: Anxiety, Depression, Psych Hospitalization(s), Other (See Below) Other Psychiatric History: hx of alcohol abuse - Infectious Disease History Infectious Disease History: Reports: Mumps - Past Surgical History HEENT Surgical History: Reports: Oral Surgery Female Surgical History: Reports: Section Social & Family History - Family History Family Medical History: Noncontributory - Tobacco Use Smoking Status *Q: Light Tobacco Smoker - Caffeine Use Caffeine Use: Reports: None - Alcohol Use Alcohol Use History: No - Living Situation & Occupation Living situation: Reports: Single Occupation: Employed ED ROS GENERAL - Review of Systems Review Of Systems: ROS reveals no pertinent complaints other than HPI. ED EXAM, GENERAL - Physical Exam Exam: See Below Free Text/Narrative:: Gen.: Alert, and over in bed and guarding movements of her abdomen, however once distracted does seem to move easily into supine position. Lungs are clear throughout, no wheezes or crackles. Heart is regular rate and rhythm. Abdomen positive bowel sounds, soft nondistended and tender in both lower quadrants. With distraction, very minimal tenderness. Patient is able to flex both hips without difficulty, change or increase in pain. Bimanual exam shows no adnexal tenderness and no cervical motion tenderness. uterus minimally tender only with abdominal palpation. Course - Vital Signs Text/Narrative:: initial evaluation completed, patient appears painful but hemodynamically stable , and not particularly remarkable abdominal exam if distracted. No rebound or guarding. Will get labs, start iv, I think pelvic US would be appropriate given history and likely will not need CT. 2mg morphine ordered for pain and to help facilitate pelvic US. Last Recorded V/S: Last Vital Signs Temp 36.6 C 11/07/18 02:30 Pulse 60 11/07/18 02:30 Resp 16 11/07/18 02:30 BP 112/82 11/07/18 02:30 Pulse Ox 100 11/07/18 02:30 - Orders/Labs/Meds Labs: Laboratory Tests 11/06/18 11/06/18 11/06/18 Range/Units 23:50 23:50 23:50 WBC 7.3 (4.5-12.0) X10-3/uL RBC 4.36 (3.23-5.20) x10(6)uL Hgb 12.9 (11.5-15.5) g/dL Hct 39.0 (30.0-51.3) % MCV 89.5 (80-96) fL MCH 29.7 (27.7-33.6) pg MCHC 33.1 (32.2-35.4) g/dL RDW 12.8 (11.5-15.5) % Plt Count 242 (125-369) X10(3)uL MPV 8.0 (7.4-10.4) fL Neut % (Auto) 48.8 (46-82) % Lymph % (Auto) 40.6 H (13-37) % [place] % (Auto) 8.8 (4-12) % Eos % (Auto) 2 (1.0-5.0) % Baso % (Auto) 0 (0-2) % Neut # (Auto) 3.7 (1.6-8.3) # Lymph # (Auto) 2.9 (0.6-5.0) # [place] # (Auto) 0.6 (0.0-1.3) # Eos # (Auto) 0.1 (0.0-0.8) # Baso # (Auto) 0.0 (0.0-0.2) # Sodium (135-145) mmol/L Potassium (3.5-5.3) mmol/L Chloride (100-110) mmol/L Carbon Dioxide (21-32) mmol/L BUN (7-18) mg/dL Creatinine (0.55-1.02) mg/dL Est Cr Clr Drug Dosing Estimated GFR (MDRD) (>60) BUN/Creatinine Ratio (9-20) Glucose (80-116) mg/dL Lactic Acid (0.4-2.2) mmol/L Calcium (8.6-10.2) mg/dL Total Bilirubin (0.1-1.3) mg/dL AST (5-25) IU/L ALT (12-36) U/L Alkaline Phosphatase (56-112) IU/L Total Protein (6.0-8.0) g/dL Albumin (3.5-5.2) g/dL Globulin g/dL Albumin/Globulin Ratio Urine Color Yellow (YELLOW) Urine Appearance Clear (CLEAR) Urine pH 7.0 H (5.0-6.5) Ur Specific [place] 1.005 L (1.010-1.025) Urine Protein Negative (NEGATIVE) mg/dL Urine Glucose (UA) Normal (NORMAL) mg/dL Urine Ketones Negative (NEGATIVE) mg/dL Urine Occult Blood Negative (NEGATIVE) Urine Nitrite Negative (NEGATIVE) Urine Bilirubin Negative (NEGATIVE) Urine Urobilinogen Normal (NEGATIVE) mg/dL Ur Leukocyte Esterase Negative (NEGATIVE) Urine HCG, Qual Negative (NEGATIVE) 11/06/18 11/06/18 Range/Units 23:50 23:50 WBC (4.5-12.0) X10-3/uL RBC (3.23-5.20) x10(6)uL Hgb (11.5-15.5) g/dL Hct (30.0-51.3) % MCV (80-96) fL MCH (27.7-33.6) pg MCHC (32.2-35.4) g/dL RDW (11.5-15.5) % Plt Count (125-369) X10(3)uL MPV (7.4-10.4) fL Neut % (Auto) (46-82) % Lymph % (Auto) (13-37) % [place] % (Auto) (4-12) % Eos % (Auto) (1.0-5.0) % Baso % (Auto) (0-2) % Neut # (Auto) (1.6-8.3) # Lymph # (Auto) (0.6-5.0) # [place] # (Auto) (0.0-1.3) # Eos # (Auto) (0.0-0.8) # Baso # (Auto) (0.0-0.2) # Sodium 141 (135-145) mmol/L Potassium 3.2 L (3.5-5.3) mmol/L Chloride 104 (100-110) mmol/L Carbon Dioxide 28 (21-32) mmol/L BUN 8 (7-18) mg/dL Creatinine 0.8 (0.55-1.02) mg/dL Est Cr Clr Drug Dosing TNP Estimated GFR (MDRD) > 60 (>60) BUN/Creatinine Ratio 10.0 (9-20) Glucose 126 H (80-116) mg/dL Lactic Acid 2.9 H (0.4-2.2) mmol/L Calcium 8.7 (8.6-10.2) mg/dL Total Bilirubin 0.3 (0.1-1.3) mg/dL AST 14 D (5-25) IU/L ALT 19 (12-36) U/L Alkaline Phosphatase 77 (56-112) IU/L Total Protein 7.2 (6.0-8.0) g/dL Albumin 3.6 (3.5-5.2) g/dL Globulin 3.6 g/dL Albumin/Globulin Ratio 1.0 Urine Color (YELLOW) Urine Appearance (CLEAR) Urine pH (5.0-6.5) Ur Specific [place] (1.010-1.025) Urine Protein (NEGATIVE) mg/dL Urine Glucose (UA) (NORMAL) mg/dL Urine Ketones (NEGATIVE) mg/dL Urine Occult Blood (NEGATIVE) Urine Nitrite (NEGATIVE) Urine Bilirubin (NEGATIVE) Urine Urobilinogen (NEGATIVE) mg/dL Ur Leukocyte Esterase (NEGATIVE) Urine HCG, Qual (NEGATIVE) Meds: Medications Discontinued Medications Generic Name Dose Route Start Last Admin Trade Name Freq PRN Reason Stop Dose Admin Ketorolac Tromethamine 30 mg 11/06/18 23:20 11/06/18 23:30 Toradol IVPUSH 11/06/18 23:21 Not Given ONETIME ONE Ketorolac Tromethamine 30 mg 11/07/18 02:24 11/07/18 02:29 Toradol IVPUSH 11/07/18 02:25 30 mg ONETIME ONE Administration Morphine Sulfate 2 mg 11/06/18 23:27 11/06/18 23:55 Morphine IVPUSH 11/06/18 23:28 2 mg ONETIME ONE Administration Morphine Sulfate Confirm 11/07/18 01:01 11/07/18 01:13 Morphine Administered 11/07/18 01:02 Not Given Dose 2 mg .ROUTE .STK-MED ONE Morphine Sulfate 2 mg 11/07/18 01:02 11/07/18 01:02 Morphine IVPUSH 11/07/18 01:03 2 mg ONETIME ONE Administration Ondansetron HCl 4 mg 11/06/18 23:29 11/06/18 23:55 Zofran IVPUSH 11/06/18 23:30 4 mg ONETIME ONE Administration Sodium Chloride 10 ml 11/06/18 23:20 11/07/18 02:30 Saline Flush FLUSH 10 ml ASDIRECTED PRN Administration Keep Vein Open - Re-Assessments/Exams Free Text/Narrative Re-Assessment/Exam: interview completed once friends departed - asked to leave as were interfering with ability to care for patient by constantly and rudely interrupting. Free Text/Narrative Re-Assessment/Exam: recheck - patient still complains of significant pain but is on her phone when I walk in the room and resting comfortably on the bed. US pending. Abdominal exam unchanged. chart reviewed, patient has been seen in ED prior for this issue, though I cannot find a report of documented cysts. She does have multiple follicles noted and I wonder about a history of endometriosis. Free Text/Narrative Re-Assessment/Exam: unremarkable pelvic US per report; read pending. Patient reports she is feeling much better and would like to go home. Offered dose of IV toradol to help with pain rest of night, and instructed on ibuprofen and tylenol dosing for home. Discussed signs or symptoms which would prompt need for immediate re-evaluation and all questions answered; she is in agreement with this plan. Followup as scheduled with SERVER PROGRAMMER Departure - Departure Time of Disposition: 02:28 Disposition: Home, Self-Care 01 Condition: Good Clinical Impression: Lower abdominal pain - Discharge Information *PRESCRIPTION DRUG MONITORING PROGRAM REVIEWED*: Yes *COPY OF PRESCRIPTION DRUG MONITORING REPORT IN PATIENT BERTIN: No Instructions: Abdominal Pain, Adult Referrals: Kayla Kearney NP [Primary Care Provider] - Forms: ED Department Discharge Additional Instructions: history of ovarian cysts - if these hurt or leak, it can be quite painful in your abdomen. can take ibuprofen 600mg up to 3X per day tylenol per bottle heat, ice, movement, whatever feels good usually pain improves within 6-12 hours followup as scheduled with gynecology
[2018-11-08 08:10] VITALS: BP 112/82
--- NOTE | 2018-11-08 12:28 | US ---
INDICATION: Left lower quadrant pain. INDICATION FOR TRANSVAGINAL: Left lower quadrant pain/need better visualization of the left ovary than was possible with transabdominal probe. PELVIC ULTRASOUND, NON-OB, LIMITED/TRANSVAGINAL PELVIC ULTRASOUND, NON-OB: Multiple ultrasonic images were obtained 11/07/18, initially with transabdominal probe and then with transvaginal probe for better visualization of the left ovary and myometrium. Findings are compared with 09/04/18. The uterus measured 7.7 x 4.2 x 4.6 cm with an endometrial cavity echo only 3 mm in diameter - essentially normal. There is again noted a scar on anterior myometrium. There is only a trace of fluid in the lower uterine segment endometrial cavity at this time - diminished compared with the previous study. The right ovary measured 3.7 x 3.6 x 3.3 cm for a volume of 23.02 mL. This is prominent in size and can be seen with polycystic ovarian disease. The largest follicle was essentially a follicular cyst measuring 19 mm. The left ovary volume was listed at 5.2 mL with measurements of 2.9 x 1.5 x 2.3 cm. The left ovary showed evidence of a few follicles with one probable hemorrhage involuting follicle, measuring approximately 10 mm and is definite different than the irregular shaped cyst seen on the previous study. The largest follicle, besides that complex follicle, measures approximately 7.4 mm. No adnexal mass lesions or free fluid collections were identified. IMPRESSION: Except for relative prominence of the right ovary with a volume of 23 mL, apparently due to multiple follicles, normal transabdominal and transvaginal pelvic ultrasound. There is incidental note made of what appears to be a scar on previous examinations at the anterior myometrium lower uterine segment. [facility]
== END 2018-11-07 02:45 | disposition home or self-care (01) ==
LOC: FB.ED 22:54
DX: R10.30 Lower abdominal pain, unspecified (principal); F41.9 Anxiety disorder, unspecified; F32.9 Major depressive disorder, single episode, unspecified; Z88.6 Allergy status to analgesic agent; Z88.1 Allergy status to other antibiotic agents; Z79.899 Other long term (current) drug therapy
CPT/HCPCS: 36415; 76830; 76857; 80053; 80178; 81003; 81025; 83605; 85025; 93005; 96374; 96375; 96376; 99282; J1885; J2270; J2405

== ENCOUNTER 2019-05-08 17:07 | Emergency (ER) | payer MEDICARE, MEDICAID ==
--- NOTE | 2019-05-08 18:35 | EDM.PDOC ---
ED HPI GENERAL MEDICAL PROBLEM - General Chief Complaint: Headache Stated Complaint: HEADACHE Time Seen by Provider: 05/08/19 18:00 Source of Information: Reports: Patient History Limitations: Reports: No Limitations - History of Present Illness INITIAL COMMENTS - FREE TEXT/NARRATIVE: pt was sent from clinic for head CT, pt c/o HAs x 3 days, states she woke up with her neck hurting and stiff 3 days ago , and HAs has been present since then , c/o pain with movement of her neck, report nausea, denies any fever or any other associated neuro or resp or CV sx or recent travel, sick contact or any other medical concerns, report Hx of headaches but not like this. head Pain Score (Numeric/FACES): 8 - Related Data Allergies Allergy/AdvReac Type Severity Reaction Status Date / Time acetaminophen [From Tylenol] Allergy Other Verified 11/08/18 08:13 azithromycin [From Zithromax] Allergy Cannot Verified 11/08/18 08:13 Remember ibuprofen Allergy Other Verified 11/08/18 08:13 Home Meds: Home Meds ARIPiprazole [Abilify] 10 mg PO DAILY 10/25/18 [History] [place] Carbonate 300 mg PO DAILY 10/25/18 [History] [place] Carbonate 600 mg PO DAILY 10/25/18 [History] Past Medical History - Past Health History Medical/Surgical History: Denies Medical/Surgical History HEENT History: Reports: Other (See Below) Other HEENT History: Lt eye pain Gastrointestinal History: Reports: Cholelithiasis, Gastritis Genitourinary History: Reports: None 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: , Other (See Below) 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 FROZEN PIE MAKER History: miscarriage x5, Psychiatric History: Reports: Anxiety, Depression, Psych Hospitalization(s), Other (See Below) Other Psychiatric History: hx of alcohol abuse - Infectious Disease History Infectious Disease History: Reports: Mumps - Past Surgical History HEENT Surgical History: Reports: Oral Surgery Female Surgical History: Reports: Section Social & Family History - Family History Family Medical History: Noncontributory - Tobacco Use Smoking Status *Q: Never Smoker - Caffeine Use Caffeine Use: Reports: Coffee - Living Situation & Occupation Living situation: Reports: Single Occupation: Employed ED ROS GENERAL - Review of Systems Review Of Systems: See Below Constitutional: Reports: No Symptoms HEENT: Reports: No Symptoms Respiratory: Reports: No Symptoms Cardiovascular: Reports: No Symptoms GI/Abdominal: Reports: No Symptoms, Nausea. Denies: Vomiting : Reports: No Symptoms Musculoskeletal: Reports: Neck Pain. Denies: Shoulder Pain, Back Pain Skin: Reports: No Symptoms Neurological: Reports: Headache. Denies: Numbness, Paresthesia, Pre-Existing Deficit, Seizure, Syncope, Change in Speech, Gait Disturbance Psychiatric: Reports: No Symptoms ED EXAM, GENERAL - Physical Exam Exam: See Below Exam Limited By: No Limitations General Appearance: Alert, Mild Distress Eye Exam: Bilateral Eye: Conjunctival Injection, PERRL Ears: Normal External Exam, Normal Canal, Normal TMs Nose: Normal Inspection Throat/Mouth: Normal Inspection, Normal Oropharynx Head: Atraumatic, Normocephalic Neck: Normal Inspection, Supple, Non-Tender, Full Range of Motion Respiratory/Chest: No Respiratory Distress, Lungs Clear, Normal Breath Sounds Cardiovascular: Normal Peripheral Pulses, Regular Rate, Rhythm, No Edema, No JVD , No Murmur GI/Abdominal: Normal Bowel Sounds, Soft, Non-Tender Back Exam: Normal Inspection, Full Range of Motion Extremities: Normal Inspection, Normal Range of Motion, Other (tender over the left trapizus muscle , no tenderness over cervical spine, ROM od cervical spine is full, extremities has nl DTR and strength. ) Neurological: Alert, Oriented, CN II-XII Intact, Normal Reflexes, No Motor/ Sensory Deficits Psychiatric: Normal Affect Skin Exam: Warm Course - Vital Signs Text/Narrative:: head ct show no acute findings. pt has muscular neck pain and supportive mng was recommended. was given here toradol and rx on flexeril, pt to follow with PCP in 1 week for re-check if continue with recurrent HAs and use over the counter motrin as directed if needed. Last Recorded V/S: Last Vital Signs Temp 36.7 C 05/08/19 17:07 Pulse 95 05/08/19 17:07 Resp 17 05/08/19 17:07 BP 115/62 05/08/19 17:07 Pulse Ox 100 05/08/19 17:07 - Orders/Labs/Meds Orders: Active Orders 24 hr Category Date Time Status Head wo Cont [CT] Stat Exams 05/08/19 17:21 Taken Departure - Departure Time of Disposition: 18:37 Disposition: Home, Self-Care 01 Condition: Good Clinical Impression: Neck pain - Discharge Information Referrals: Kayla Kearney NP [Primary Care Provider] - - My Orders Last 24 Hours: My Active Orders 05/08/19 17:21 Head wo Cont [CT] Stat - Assessment/Plan Last 24 Hours: My Active Orders 05/08/19 17:21 Head wo Cont [CT] Stat
[2019-05-08] MEDS: Ketorolac 60 MG/2 ML SDV IM ONE ×2 (19:16→19:19)
[2019-05-08 20:29] VITALS: BP 110/76; PULSE 86
== END 2019-05-08 19:20 | disposition home or self-care (01) ==
LOC: FB.ED 17:07
DX: M54.2 Cervicalgia (principal); R51 Headache; F32.9 Major depressive disorder, single episode, unspecified; Z79.899 Other long term (current) drug therapy; Z88.1 Allergy status to other antibiotic agents; Z88.6 Allergy status to analgesic agent
CPT/HCPCS: 70450; 99284-25; J1885

== ENCOUNTER 2019-05-11 11:50 | Emergency (ER) | payer MEDICARE, MEDICAID ==
[2019-05-11] MEDS ORDERED: Ketorolac 30 MG/ML SDV IVPUSH ONE (12:26)
[2019-05-11] MEDS ORDERED: hydrOXYzine HCl 50 MG/ML SDV IM ONE (12:26)
[2019-05-11] MEDS ORDERED: Ondansetron 4 MG/2 ML SDV IVPUSH ONE (12:26)
--- NOTE | 2019-05-11 12:36 | EDM.PDOC ---
ED HPI GENERAL MEDICAL PROBLEM - General Chief Complaint: General Stated Complaint: WEAK DIZZINESS Time Seen by Provider: 05/11/19 12:17 Source of Information: Reports: Patient History Limitations: Reports: No Limitations - History of Present Illness INITIAL COMMENTS - FREE TEXT/NARRATIVE: has had headache for more than a week . started after she took some medication with throwing her head back , sustained pain and tension in the left posterior neck , since then this has radiated to the left shoulder and arm . Headache behind her eyes has improved but she still has pain in the base of the skull radiating to the left shoulder was seen on thursday , had negative head CT , placed on flexeril and naproxen and symptoms have not improved goes to [employer] , has to be on her feet all day Also menses was delayed for more than a week. Just started bleeding today Onset: Gradual Onset Date: 05/01/19 Duration: Getting Worse Location: Reports: Head, Neck, Upper Extremity, Left Quality: Reports: Ache, Dull Severity: Moderate Improves with: Reports: Heat Therapy Worsens with: Reports: Cold Therapy Context: Reports: Activity Associated Symptoms: Reports: Headaches L sided headache Pain Score (Numeric/FACES): 9 - Related Data Allergies Allergy/AdvReac Type Severity Reaction Status Date / Time azithromycin [From Zithromax] Allergy Cannot Verified 05/11/19 11:57 Remember ibuprofen Allergy Vomiting Verified 05/11/19 11:59 Home Meds: Home Meds Cyclobenzaprine [Flexeril] 10 mg PO TID PRN #20 tab 05/08/19 [Rx] Multivitamin [Multivitamins] 1 each PO DAILY 05/11/19 [History] Naproxen Sodium [Aleve] 220 mg PO BID PRN 05/11/19 [History] Ondansetron [Zofran ODT] 4 mg PO Q6H PRN #20 tab.dis 05/11/19 [Rx] Past Medical History - Past Health History Medical/Surgical History: Denies Medical/Surgical History HEENT History: Reports: Other (See Below) Other HEENT History: Lt eye pain Gastrointestinal History: Reports: Cholelithiasis, Gastritis Genitourinary History: Reports: Pyelonephritis 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: , 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 (See Below) 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: [id number] Musculoskeletal History: Reports: Fracture Other Musculoskeletal History: hx fx R clavicle Neurological History: Reports: Migraines, Seizure, Other (See Below) Other Neuro History: pseudo-seizures Psychiatric History: Reports: Anxiety, Depression, Psych Hospitalization(s), Suicide Attempt, Other (See Below) Other Psychiatric History: hx of alcohol abuse - Infectious Disease History Infectious Disease History: Reports: Chicken Pox, Mumps - Past Surgical History HEENT Surgical History: Reports: Oral Surgery GI Surgical History: Reports: Cholecystectomy Female Surgical History: Reports: Section Other Female Surgeries/Procedures: CS x 1 Neurological Surgical History: Reports: None Musculoskeletal Surgical History: Reports: None Social & Family History - Family History Family Medical History: Noncontributory - Tobacco Use Smoking Status *Q: Former Smoker Years of Tobacco use: 8 Used Tobacco, but Quit: Yes Month/Year Tobacco Last Used: 2010 - Caffeine Use Caffeine Use: Reports: None - Recreational Drug Use Recreational Drug Use: No - Living Situation & Occupation Living situation: Reports: Single Occupation: Employed ED ROS GENERAL - Review of Systems Review Of Systems: See Below Constitutional: Reports: Fatigue HEENT: Reports: No Symptoms Respiratory: Reports: No Symptoms Cardiovascular: Reports: No Symptoms Endocrine: Reports: No Symptoms Musculoskeletal: Reports: Neck Pain, Shoulder Pain, Arm Pain, Muscle Pain, Muscle Stiffness Skin: Reports: No Symptoms Neurological: Reports: Headache. Denies: Confusion, Dizziness, Tremors, Difficulty Walking Psychiatric: Denies: No Symptoms Hematologic/Lymphatic: Reports: No Symptoms Immunologic: Reports: No Symptoms ED EXAM, GENERAL - Physical Exam Exam: See Below Exam Limited By: No Limitations General Appearance: Alert, WD/WN, No Apparent Distress Eye Exam: Bilateral Eye: EOMI Ears: Hearing Grossly Normal, Normal TMs Ear Exam: Bilateral Ear: TM normal Nose: Normal Inspection, Normal Mucosa Throat/Mouth: Normal Inspection Head: Atraumatic, Normocephalic Neck: Normal Inspection, Supple, Limited Range of Motion, Tender Lateral (left sided , spasm of the lateral neck muscle , worse on palpation ) Respiratory/Chest: Lungs Clear Cardiovascular: Regular Rate, Rhythm Extremities: Normal Inspection, Normal Range of Motion Neurological: Alert, Oriented, Normal Cognition, Normal Gait Psychiatric: Normal Affect, Normal Mood, Anxious Skin Exam: Warm Course - Vital Signs Text/Narrative:: pt given IVF , toradol , zofran and vistaril , state Headache did not improve . Pt given tylenol #3 . still has residual CARLOS . discussed with pt that she will need to go home rest , sleep hopefully by the time she wakes up she will no longer have headache , or it would have improved Last Recorded V/S: Last Vital Signs Temp 36.7 C 05/11/19 11:50 Pulse 88 05/11/19 11:50 Resp 18 05/11/19 11:50 BP 118/85 05/11/19 11:50 Pulse Ox 99 05/11/19 11:50 - Orders/Labs/Meds Labs: Laboratory Tests 05/11/19 05/11/19 05/11/19 Range/Units 12:40 12:40 13:54 WBC 8.1 (4.5-12.0) X10-3/uL RBC 4.18 (3.23-5.20) x10(6)uL Hgb 12.0 (11.5-15.5) g/dL Hct 36.0 (30.0-51.3) % MCV 86.3 (80-96) fL MCH 28.7 (27.7-33.6) pg MCHC 33.2 (32.2-35.4) g/dL RDW 14.7 (11.5-15.5) % Plt Count 299 (125-369) X10(3)uL MPV 7.7 (7.4-10.4) fL Neut % (Auto) 67.9 (46-82) % Lymph % (Auto) 24.8 (13-37) % Moody % (Auto) 6.0 (4-12) % Eos % (Auto) 1 (1.0-5.0) % Baso % (Auto) 0 (0-2) % Neut # (Auto) 5.5 (1.6-8.3) # Lymph # (Auto) 2.0 (0.6-5.0) # Moody # (Auto) 0.5 (0.0-1.3) # Eos # (Auto) 0.1 (0.0-0.8) # Baso # (Auto) 0.0 (0.0-0.2) # Sodium 140 (135-145) mmol/L Potassium 3.6 (3.5-5.3) mmol/L Chloride 103 (100-110) mmol/L Carbon Dioxide 28 (21-32) mmol/L BUN 13 (7-18) mg/dL Creatinine 0.6 (0.55-1.02) mg/dL Est Cr Clr Drug Dosing 102.06 mL/min Estimated GFR (MDRD) > 60 (>60) BUN/Creatinine Ratio 21.7 H (9-20) Glucose 96 (80-116) mg/dL Calcium 8.8 (8.6-10.2) mg/dL Urine Color Yellow (YELLOW) Urine Appearance Clear (CLEAR) Urine pH 6.5 (5.0-6.5) Ur Specific [place] 1.020 (1.010-1.025) Urine Protein Negative (NEGATIVE) mg/dL Urine Glucose (UA) Normal (NORMAL) mg/dL Urine Ketones 15 H (NEGATIVE) mg/dL Urine Occult Blood Large H (NEGATIVE) Urine Nitrite Negative (NEGATIVE) Urine Bilirubin Negative (NEGATIVE) Urine Urobilinogen Normal (NEGATIVE) mg/dL Ur Leukocyte Esterase Negative (NEGATIVE) Urine RBC 5-10 H (0-5) Urine WBC Not seen (0-5) Ur Squamous Epith Cells Not seen (NS,R,O) Urine Bacteria Rare H (NS) Meds: Medications Discontinued Medications Generic Name Dose Route Start Last Admin Trade Name Freq PRN Reason Stop Dose Admin Acetaminophen/Codeine Phosphate 1 tab 05/11/19 13:52 05/11/19 14:05 Tylenol With Codeine No.3 300mg/30mg PO 05/11/19 13:53 1 tab ONETIME ONE Administration Cyclobenzaprine HCl 10 mg 05/11/19 13:52 05/11/19 14:05 Flexeril PO 05/11/19 13:53 10 mg ONETIME ONE Administration Hydroxyzine HCl 50 mg 05/11/19 12:26 05/11/19 12:44 Vistaril IM 05/11/19 12:27 50 mg ONETIME ONE Administration Sodium Chloride 1,000 mls @ 999 mls/hr 05/11/19 12:38 05/11/19 12:50 Normal Saline IV 05/11/19 13:38 999 mls/hr .BOLUS ONE Administration Ketorolac Tromethamine 30 mg 05/11/19 12:26 05/11/19 12:50 Toradol IVPUSH 05/11/19 12:27 30 mg ONETIME ONE Administration Ondansetron HCl 4 mg 05/11/19 12:26 05/11/19 12:55 Zofran IVPUSH 05/11/19 12:27 4 mg ONETIME ONE Administration Departure - Departure Time of Disposition: 02:45 Disposition: Home, Self-Care 01 Clinical Impression: Muscle spasms of neck, Headache disorder, Migraine headache Clinical Impression: (Ruled Out): Migraine aura, persistent - Discharge Information *PRESCRIPTION DRUG MONITORING PROGRAM REVIEWED*: Not Applicable *COPY OF PRESCRIPTION DRUG MONITORING REPORT IN PATIENT BERTIN: Not Applicable Instructions: Recurrent Migraine Headache, [id number], Muscle Cramps and Spasms, Heat Therapy, [id number] Referrals: Kayla Kearney NP [Primary Care Provider] - Forms: ED Department Discharge Additional Instructions: 1) continue with medications as prescribed on thursday 2) Make appointment to see your PCP for further evaluation and treatment 3) Call Er if you have any concerns Sepsis Event Note - Evaluation Sepsis Screening Result: No Definite Risk - Focused Exam Vital Signs: Vital Signs Temp Pulse Resp BP Pulse Ox 05/11/19 11:50 36.7 C 88 18 118/85 99 Date Exam was Performed: 05/11/19 Time Exam was Performed: 14:33
[2019-05-11] MEDS ORDERED: Sodium Chloride 0.9% 1,000 ML IV ONE (12:38)
[2019-05-11] MEDS ORDERED: Cyclobenzaprine 10 MG Tab PO ONE (13:52)
[2019-05-11] MEDS ORDERED: Acetaminophen/Codeine 300-30 MG Tab PO ONE (13:52)
[2019-05-11 15:19] VITALS: BP 108/62; PULSE 84
== END 2019-05-11 14:55 | disposition home or self-care (01) ==
LOC: FB.ED 11:50
DX: G43.909 Migraine, unspecified, not intractable, without status migrainosus (principal); M62.838 Other muscle spasm; R51 Headache; Z88.1 Allergy status to other antibiotic agents; Z88.6 Allergy status to analgesic agent
CPT/HCPCS: 36415; 80048; 81001; 85025; 96361; 96372; 96374; 96375; 99284; 99284-25; A9270-GY; J1885; J2405; J3410; J7030

== ENCOUNTER 2019-08-04 02:02 | Emergency (ER) | payer MEDICARE, MEDICAID ==
[2019-08-04] MEDS ORDERED: Ketorolac 30 MG/ML SDV IVPUSH ONE (02:43)
[2019-08-04] MEDS ORDERED: Ondansetron 4 MG/2 ML SDV IVPUSH ONE (02:43)
[2019-08-04] MEDS ORDERED: Sodium Chloride 0.9% 1,000 ML IV SCH (02:45)
--- NOTE | 2019-08-04 02:49 | EDM.PDOC ---
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 working, lives alone ate pizza at 8p, had n/v with pain in abd at 11p, mainly at LLQ sxs have persisted soft BM x 2 today LMP 2/4 for usual 4d, not on BCP, h/o chlamydia 2y ago no vag d/c, no dysuria has had choly, denies other abd surgery right side abd Pain Score (Numeric/FACES): 9 - Related Data Allergies Allergy/AdvReac Type Severity Reaction Status Date / Time azithromycin [From Zithromax] Allergy Cannot Verified 05/11/19 11:57 Remember ibuprofen Allergy Vomiting Verified 05/11/19 11:59 Home Meds: Home Meds Cyclobenzaprine [Flexeril] 10 mg PO TID PRN #20 tab 05/08/19 [Rx] Multivitamin [Multivitamins] 1 each PO DAILY 05/11/19 [History] Naproxen Sodium [Aleve] 220 mg PO BID PRN 05/11/19 [History] Ondansetron [Zofran ODT] 4 mg PO Q6H PRN #20 tab.dis 05/11/19 [Rx] Doxycycline [Vibramycin] 100 mg PO DAILY #13 cap 08/04/19 [Rx] Past Medical History - Past Health History Medical/Surgical History: Denies Medical/Surgical History HEENT History: Reports: Other (See Below) Other HEENT History: Lt eye pain Gastrointestinal History: Reports: Cholelithiasis, Gastritis Genitourinary History: Reports: Pyelonephritis 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: , 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 (See Below) 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: [id number] Musculoskeletal History: Reports: Fracture Other Musculoskeletal History: hx fx R clavicle Neurological History: Reports: Migraines, Seizure, Other (See Below) Other Neuro History: pseudo-seizures Psychiatric History: Reports: Anxiety, Depression, Psych Hospitalization(s), Suicide Attempt, Other (See Below) Other Psychiatric History: hx of alcohol abuse - Infectious Disease History Infectious Disease History: Reports: Chicken Pox, Mumps - Past Surgical History HEENT Surgical History: Reports: Oral Surgery GI Surgical History: Reports: Cholecystectomy Female Surgical History: Reports: Section Other Female Surgeries/Procedures: CS x 1 Neurological Surgical History: Reports: None Musculoskeletal Surgical History: Reports: None Social & Family History - Family History Family Medical History: Noncontributory - Tobacco Use Smoking Status *Q: Never Smoker - Caffeine Use Caffeine Use: Reports: None - Living Situation & Occupation Living situation: Reports: Single Occupation: Employed ED ROS GENERAL - Review of Systems Review Of Systems: See Below Constitutional: Reports: No Symptoms HEENT: Reports: No Symptoms Respiratory: Reports: No Symptoms Cardiovascular: Reports: No Symptoms Endocrine: Reports: No Symptoms GI/Abdominal: Reports: Abdominal Pain, Nausea, Vomiting : Reports: No Symptoms Musculoskeletal: Reports: No Symptoms Skin: Reports: No Symptoms Neurological: Reports: No Symptoms Psychiatric: Reports: No Symptoms Hematologic/Lymphatic: Reports: No Symptoms Immunologic: Reports: No Symptoms ED EXAM, GENERAL - Physical Exam Exam: See Below Exam Limited By: No Limitations General Appearance: Alert, WD/WN, Mild Distress Ears: Normal External Exam, Normal Canal Nose: Normal Inspection Throat/Mouth: Normal Inspection, Normal Lips, Normal Voice, No Airway Compromise Head: Atraumatic, Normocephalic Neck: Normal Inspection, Supple, Non-Tender, Full Range of Motion. No: Lymphadenopathy (R), Lymphadenopathy (L) Respiratory/Chest: No Respiratory Distress, Lungs Clear, Normal Breath Sounds, No Accessory Muscle Use, Chest Non-Tender Cardiovascular: Regular Rate, Rhythm, No Edema, No Murmur, No Rub GI/Abdominal: Normal Bowel Sounds, Soft, No Distention, Other (mild tender everywhere except NT at LUQ and L flank, inc'd tender at RLQ) Back Exam: Normal Inspection, Full Range of Motion, NT Extremities: Normal Inspection, Normal Range of Motion, Non-Tender, No Pedal Edema Neurological: Alert, Oriented, CN II-XII Intact, Normal Cognition, No Motor/ Sensory Deficits Psychiatric: Normal Affect, Normal Mood Skin Exam: Warm, Dry, Intact, Normal Color, No Rash Lymphatic: No Adenopathy Course - Vital Signs Last Recorded V/S: Last Vital Signs Temp 36.7 C 08/04/19 02:02 Pulse 98 08/04/19 02:02 Resp 18 03/05/20 02:02 BP 120/65 08/04/19 02:02 Pulse Ox 100 08/04/19 02:02 - Orders/Labs/Meds Orders: Active Orders 24 hr Category Date Time Status Abdomen Pelvis w Cont [CT] Stat Exams 08/04/19 02:43 Ordered CHLAMYDIA/GC AMPLIFICATION Routine Lab 08/04/19 04:22 Ordered Doxycycline [Vibra-Tabs] Med 08/04/19 04:39 Once 100 mg PO ONETIME ONE Sodium Chloride 0.9% [Normal Saline] 1,000 ml Med 08/04/19 02:45 Ordered IV ASDIRECTED cefTRIAXone [Rocephin] Med 08/04/19 04:38 Once 250 mg IM ONETIME ONE Medication Orders Ceftriaxone Sodium (Rocephin) 250 mg IM ONETIME ONE Stop: 08/04/19 04:39 Doxycycline Hyclate (Vibra-Tabs) 100 mg PO ONETIME ONE Stop: 08/04/19 04:40 Sodium Chloride (Normal Saline) 1,000 mls @ 999 mls/hr IV ASDIRECTED MARGOT Last Admin: 08/04/19 03:08 Dose: 999 mls/hr Labs: Laboratory Tests 08/04/19 08/04/19 08/04/19 Range/Units 02:10 02:10 03:05 WBC 9.7 (4.5-12.0) X10-3/uL RBC 4.49 (3.23-5.20) x10(6)uL Hgb 12.8 (11.5-15.5) g/dL Hct 38.8 (30.0-51.3) % MCV 86.5 (80-96) fL MCH 28.6 (27.7-33.6) pg MCHC 33.1 (32.2-35.4) g/dL RDW 13.4 (11.5-15.5) % Plt Count 260 (125-369) X10(3)uL MPV 7.5 (7.4-10.4) fL Add Manual Diff Yes Neutrophils % (Manual) 79 (46-82) % Band Neutrophils % 4 (0-6) % Lymphocytes % (Manual) 10 L (13-37) % Monocytes % (Manual) 6 (4-12) % Eosinophils % (Manual) 1 (0-5) % Sodium (135-145) mmol/L Potassium (3.5-5.3) mmol/L Chloride (100-110) mmol/L Carbon Dioxide (21-32) mmol/L BUN (7-18) mg/dL Creatinine (0.55-1.02) mg/dL Est Cr Clr Drug Dosing mL/min Estimated GFR (MDRD) (>60) BUN/Creatinine Ratio (9-20) Glucose (80-116) mg/dL Calcium (8.6-10.2) mg/dL Total Bilirubin (0.1-1.3) mg/dL AST (5-25) IU/L ALT (12-36) U/L Alkaline Phosphatase (56-112) IU/L C-Reactive Protein (0.5-0.9) mg/dL Total Protein (6.0-8.0) g/dL Albumin (3.5-5.2) g/dL Globulin g/dL Albumin/Globulin Ratio Lipase (73-393) U/L Urine Color Yellow (YELLOW) Urine Appearance Slightly cloudy (CLEAR) Urine pH 9.0 H (5.0-6.5) Ur Specific [place] 1.015 (1.010-1.025) Urine Protein Negative (NEGATIVE) mg/dL Urine Glucose (UA) Normal (NORMAL) mg/dL Urine Ketones Negative (NEGATIVE) mg/dL Urine Occult Blood Negative (NEGATIVE) Urine Nitrite Negative (NEGATIVE) Urine Bilirubin Negative (NEGATIVE) Urine Urobilinogen Normal (NEGATIVE) mg/dL Ur Leukocyte Esterase Negative (NEGATIVE) Urine RBC 0-5 (0-5) Urine WBC 0-5 (0-5) Ur Squamous Epith Cells Occasional (NS,R,O) Amorphous Sediment Few Urine Bacteria Few H (NS) Urine HCG, Qual Negative (NEGATIVE) 08/04/19 08/04/19 Range/Units 03:05 03:05 WBC (4.5-12.0) X10-3/uL RBC (3.23-5.20) x10(6)uL Hgb (11.5-15.5) g/dL Hct (30.0-51.3) % MCV (80-96) fL MCH (27.7-33.6) pg MCHC (32.2-35.4) g/dL RDW (11.5-15.5) % Plt Count (125-369) X10(3)uL MPV (7.4-10.4) fL Add Manual Diff Neutrophils % (Manual) (46-82) % Band Neutrophils % (0-6) % Lymphocytes % (Manual) (13-37) % Monocytes % (Manual) (4-12) % Eosinophils % (Manual) (0-5) % Sodium 143 (135-145) mmol/L Potassium 3.5 (3.5-5.3) mmol/L Chloride 106 (100-110) mmol/L Carbon Dioxide 27 (21-32) mmol/L BUN 14 (7-18) mg/dL Creatinine 0.8 (0.55-1.02) mg/dL Est Cr Clr Drug Dosing 76.54 mL/min Estimated GFR (MDRD) > 60 (>60) BUN/Creatinine Ratio 17.5 (9-20) Glucose 141 H (80-116) mg/dL Calcium 8.8 (8.6-10.2) mg/dL Total Bilirubin 0.3 (0.1-1.3) mg/dL AST 17 D (5-25) IU/L ALT 15 D (12-36) U/L Alkaline Phosphatase 75 (56-112) IU/L C-Reactive Protein 1.0 H (0.5-0.9) mg/dL Total Protein 7.8 (6.0-8.0) g/dL Albumin 3.7 (3.5-5.2) g/dL Globulin 4.1 g/dL Albumin/Globulin Ratio 0.9 Lipase 113 (73-393) U/L Urine Color (YELLOW) Urine Appearance (CLEAR) Urine pH (5.0-6.5) Ur Specific [place] (1.010-1.025) Urine Protein (NEGATIVE) mg/dL Urine Glucose (UA) (NORMAL) mg/dL Urine Ketones (NEGATIVE) mg/dL Urine Occult Blood (NEGATIVE) Urine Nitrite (NEGATIVE) Urine Bilirubin (NEGATIVE) Urine Urobilinogen (NEGATIVE) mg/dL Ur Leukocyte Esterase (NEGATIVE) Urine RBC (0-5) Urine WBC (0-5) Ur Squamous Epith Cells (NS,R,O) Amorphous Sediment Urine Bacteria (NS) Urine HCG, Qual (NEGATIVE) Meds: Medications Generic Name Dose Route Start Last Admin Trade Name Freq PRN Reason Stop Dose Admin Ceftriaxone Sodium 250 mg 08/04/19 04:38 Rocephin IM 08/04/19 04:39 ONETIME ONE Doxycycline Hyclate 100 mg 08/04/19 04:39 Vibra-Tabs PO 08/04/19 04:40 ONETIME ONE Sodium Chloride 1,000 mls @ 999 mls/hr 08/04/19 02:45 08/04/19 03:08 Normal Saline IV 999 mls/hr ASDIRECTED MARGOT Administration Discontinued Medications Generic Name Dose Route Start Last Admin Trade Name Kelly PRN Reason Stop Dose Admin Iopamidol 66 ml 08/04/19 03:26 08/04/19 03:37 Isovue-370 (76%) IV 08/04/19 03:27 66 ml . DIRECTED ONE Administration Ketorolac Tromethamine 30 mg 08/04/19 02:43 08/04/19 03:00 Toradol IVPUSH 08/04/19 02:44 30 mg ONETIME ONE Administration Ondansetron HCl 4 mg 08/04/19 02:43 08/04/19 03:00 Zofran IVPUSH 08/04/19 02:44 4 mg ONETIME ONE Administration - Re-Assessments/Exams Free Text/Narrative Re-Assessment/Exam: 08/04/19 04:39 CT abd/pelvis with IV contrast with normal appendix, fluid noted at cx on pelvic exam with RN KRISTA Irene, large amount white creamy fluid in fornix with similar d/c from cx, positive CMT, tender over uterus and adenxa b/l pt states only one male partner in past month Departure - Departure Time of Disposition: 04:41 Disposition: Home, Self-Care 01 Condition: Good Clinical Impression: Pelvic inflammatory disease (PID) - Discharge Information *PRESCRIPTION DRUG MONITORING PROGRAM REVIEWED*: Not Applicable *COPY OF PRESCRIPTION DRUG MONITORING REPORT IN PATIENT BERTIN: Not Applicable Prescriptions: Doxycycline [Vibramycin] 100 mg PO DAILY #13 cap Instructions: Pelvic Inflammatory Disease Referrals: Kayla Kearney NP [Primary Care Provider] - Forms: ED Department Discharge Additional Instructions: For infection, take doxycycline 100 mg 1 capsule 2 times a day for 7 days. No sexual activity for the next week. Your partner should see his physician and be tested and treated in the next several days. You need to see your physician as well in 4-5 days. Return to Emergency Department if you are feeling worse. Sepsis Event Note - Evaluation Sepsis Screening Result: No Definite Risk - Focused Exam Vital Signs: Vital Signs Temp Pulse Resp BP Pulse Ox 08/04/19 02:02 36.7 C 98 18 120/65 100 Date Exam was Performed: 08/04/19 Time Exam was Performed: 04:39 - My Orders Last 24 Hours: My Active Orders 08/04/19 02:43 Abdomen Pelvis w Cont [CT] Stat 08/04/19 02:45 Sodium Chloride 0.9% [Normal Saline] 1,000 ml IV ASDIRECTED 08/04/19 04:22 CHLAMYDIA/GC AMPLIFICATION Routine 08/04/19 04:38 cefTRIAXone [Rocephin] 250 mg IM ONETIME ONE 08/04/19 04:39 Doxycycline [Vibra-Tabs] 100 mg PO ONETIME ONE - Assessment/Plan Last 24 Hours: My Active Orders 08/04/19 02:43 Abdomen Pelvis w Cont [CT] Stat 08/04/19 02:45 Sodium Chloride 0.9% [Normal Saline] 1,000 ml IV ASDIRECTED 08/04/19 04:22 CHLAMYDIA/GC AMPLIFICATION Routine 08/04/19 04:38 cefTRIAXone [Rocephin] 250 mg IM ONETIME ONE 08/04/19 04:39 Doxycycline [Vibra-Tabs] 100 mg PO ONETIME ONE
[2019-08-04] MEDS ORDERED: Iopamidol 755 Mg/ML 100 ML Bottle IV ONE (03:26)
[2019-08-04] MEDS ORDERED: cefTRIAXone 250 MG Vial IM ONE (04:38)
[2019-08-04] MEDS ORDERED: Doxycycline 100 MG Tab PO ONE (04:39)
[2019-08-04 05:17] VITALS: BP 105/60; PULSE 86
[2019-08-07 10:11] LABS: CHLAMYDIA TRACHOMATIS, NAA Negative (Negative); NEISSERIA GONORRHOEAE, NAA Negative (Negative)
== END 2019-08-04 05:05 | disposition home or self-care (01) ==
LOC: FB.ED 02:02
DX: N73.9 Female pelvic inflammatory disease, unspecified (principal); Z90.49 Acquired absence of other specified parts of digestive tract; Z88.1 Allergy status to other antibiotic agents; Z88.8 Allergy status to other drugs, medicaments and biological substances; Z79.899 Other long term (current) drug therapy
CPT/HCPCS: 36415; 74177; 80053; 81001; 81025; 83690; 85025; 86140; 86593; 87491; 87591; 96361; 96372; 96374; 96375; 99284; A9270; J0696; J1885; J2405; J7030; Q9967

== ENCOUNTER 2019-11-24 11:22 | Emergency (ER) | payer MEDICARE, MEDICAID ==
--- NOTE | 2019-11-24 11:51 | EDM.PDOC ---
ED HPI GENERAL MEDICAL PROBLEM - General Chief Complaint: General Time Seen by Provider: 11/24/19 11:25 Source of Information: Reports: Patient History Limitations: Reports: No Limitations - History of Present Illness INITIAL COMMENTS - FREE TEXT/NARRATIVE: c/o L flank pain and fever x 4d lives alone, not working, gets her 4 yo son every other week, he has not been ill, no sick contacts take Li and Abilify last saw PCP Mee Nelson 1m ago no cough, occasional CARLOS not take antipyretics, says her temp was 101 oral last night, 100.5 previously no freq, no dysuria last BM last wk, says "I have a BM 2x a month if I'm becky" called clinic today who told pt to come to ED no vag d/c, menses began yesterday evening Headache Pain Score (Numeric/FACES): 6 - Related Data Allergies Allergy/AdvReac Type Severity Reaction Status Date / Time azithromycin [From Zithromax] Allergy Cannot Verified 11/24/19 11:34 Remember ibuprofen Allergy Vomiting Verified 11/24/19 11:34 Home Meds: Home Meds Multivitamin [Multivitamins] 1 each PO DAILY 05/11/19 [History] Naproxen Sodium [Aleve] 220 mg PO BID PRN 05/11/19 [History] ARIPiprazole [Abilify] 10 mg PO DAILY 11/24/19 [History] [place] Carbonate 300 mg PO BEDTIME 11/24/19 [History] [place] Carbonate 600 mg PO DAILY 11/24/19 [History] Sennosides/Docusate Sodium [Senna-S] 1 tab PO DAILY 11/24/19 [History] Past Medical History - Past Health History Medical/Surgical History: Denies Medical/Surgical History HEENT History: Reports: Other (See Below) Other HEENT History: Lt eye pain Gastrointestinal History: Reports: Cholelithiasis, Gastritis Genitourinary History: Reports: Pyelonephritis 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: , Other (See Below) 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 TRAIN GATE ATTENDANT History: [id number] Musculoskeletal History: Reports: Fracture Other Musculoskeletal History: hx fx R clavicle Neurological History: Reports: Migraines, Seizure, Other (See Below) Other Neuro History: pseudo-seizures Psychiatric History: Reports: Anxiety, Depression, Psych Hospitalization(s), Suicide Attempt, Other (See Below) Other Psychiatric History: hx of alcohol abuse - Infectious Disease History Infectious Disease History: Reports: Chicken Pox, Mumps - Past Surgical History HEENT Surgical History: Reports: Oral Surgery GI Surgical History: Reports: Cholecystectomy Female Surgical History: Reports: Section Other Female Surgeries/Procedures: CS x 1 Neurological Surgical History: Reports: None Musculoskeletal Surgical History: Reports: None Social & Family History - Family History Family Medical History: Noncontributory - Tobacco Use Smoking Status *Q: Never Smoker - Caffeine Use Caffeine Use: Reports: None - Recreational Drug Use Recreational Drug Use: No - Living Situation & Occupation Living situation: Reports: Single Occupation: Employed ED ROS GENERAL - Review of Systems Review Of Systems: See Below Constitutional: Reports: Fever HEENT: Reports: No Symptoms Respiratory: Reports: No Symptoms. Denies: Shortness of Breath, Cough Cardiovascular: Reports: No Symptoms Endocrine: Reports: No Symptoms GI/Abdominal: Reports: Abdominal Pain. Denies: Constipation, Diarrhea, Nausea, Vomiting : Reports: No Symptoms, Flank Pain. Denies: Frequency, Incontinence, Irregular Menses, Urgency Musculoskeletal: Reports: No Symptoms Skin: Reports: No Symptoms Neurological: Reports: No Symptoms Psychiatric: Reports: No Symptoms Immunologic: Reports: No Symptoms ED EXAM, GENERAL - Physical Exam Exam: See Below Exam Limited By: No Limitations General Appearance: Alert, WD/WN, No Apparent Distress, Other (alert, moves easily, nonill) Eye Exam: Right Eye: Conjunctival Injection, Bilateral Eye: Normal Inspection Ears: Hearing Grossly Normal, Normal TMs Nose: Normal Inspection, Normal Mucosa, No Blood. No: Nasal Swelling Throat/Mouth: Normal Inspection, Normal Lips, Normal Teeth, Normal Gums, Normal Oropharynx, Normal Voice, No Airway Compromise Head: Atraumatic, Normocephalic Neck: Normal Inspection, Supple, Non-Tender, Full Range of Motion. No: Lymphadenopathy (R), Lymphadenopathy (L) Respiratory/Chest: No Respiratory Distress, Lungs Clear, Normal Breath Sounds, No Accessory Muscle Use, Chest Non-Tender Cardiovascular: Regular Rate, Rhythm, No Edema, No Gallop, No JVD, No Murmur, No Rub GI/Abdominal: Normal Bowel Sounds, Soft, Non-Tender, Other (very soft, nl BS x 4, no palpable stool, slight tender at LLQ and suprapubic area, no CVAT, does not appear tender at either flank) Back Exam: Normal Inspection, Full Range of Motion. No: CVA Tenderness (R), CVA Tenderness (L) Extremities: Normal Inspection, Normal Range of Motion, Non-Tender Neurological: Alert, Oriented, CN II-XII Intact, Normal Cognition, No Motor/Sensory Deficits Psychiatric: Normal Affect, Normal Mood Skin Exam: Warm, Dry, Intact, Normal Color, No Rash Lymphatic: No Adenopathy Course - Vital Signs Last Recorded V/S: Last Vital Signs Temp 36.9 C 11/24/19 11:25 Pulse 73 11/24/19 11:25 Resp 16 11/24/19 11:25 BP 116/81 11/24/19 11:25 Pulse Ox 100 11/24/19 11:25 - Orders/Labs/Meds Orders: Active Orders 24 hr Category Date Time Status CBC WITH AUTO DIFF [HEME] Stat Lab 11/24/19 11:44 Ordered COMPREHENSIVE METABOLIC PN,CMP [CHEM] Stat Lab 11/24/19 11:44 Ordered CRP [C-REACTIVE PROTEIN] [CHEM] Stat Lab 11/24/19 11:44 Ordered URINALYSIS W/MICROSCOPIC [UA W/MICROSCOPIC] [URIN] Stat Lab 11/24/19 11:44 Ordered - Re-Assessments/Exams Free Text/Narrative Re-Assessment/Exam: 11/24/19 13:12 labs are neg, sxs of abd pain and low grade temp are subjective, no objective clinical findings no COVID concerns pt had planned to see her PCP today, Mee Nelson. Pt advised to see her in f/u in 4d. As a precaution, GC/chlamydia added to the urine specimen altho this is low probability as well. Departure - Departure Time of Disposition: 13:04 Disposition: Home, Self-Care 01 Condition: Good Clinical Impression: Abdominal pain, Abdominal pain - Discharge Information *PRESCRIPTION DRUG MONITORING PROGRAM REVIEWED*: Not Applicable *COPY OF PRESCRIPTION DRUG MONITORING REPORT IN PATIENT BERTIN: Not Applicable Referrals: PCP,None [Primary Care Provider] - Additional Instructions: Your tests here do not show active infection. Your white blood cells are normal as well as your other tests for infection. Your symptoms should subside within a day or two. For discomfort or fever, take acetaminophen 500 mg 2 tabs 3-4 times a day. See Mee Nelson in 4 days for further evaluation and recommendations. Continue to use good handwashing at home and face masks when you are out of the house. Sepsis Event Note (ED) - Evaluation Sepsis Screening Result: No Definite Risk - Focused Exam Vital Signs: Vital Signs Temp Pulse Resp BP Pulse Ox 11/24/19 11:25 36.9 C 73 16 116/81 100 - My Orders Last 24 Hours: My Active Orders 11/24/19 11:44 CBC WITH AUTO DIFF [HEME] Stat COMPREHENSIVE METABOLIC PN,CMP [CHEM] Stat CRP [C-REACTIVE PROTEIN] [CHEM] Stat URINALYSIS W/MICROSCOPIC [UA W/MICROSCOPIC] [URIN] Stat - Assessment/Plan Last 24 Hours: My Active Orders 11/24/19 11:44 CBC WITH AUTO DIFF [HEME] Stat COMPREHENSIVE METABOLIC PN,CMP [CHEM] Stat CRP [C-REACTIVE PROTEIN] [CHEM] Stat URINALYSIS W/MICROSCOPIC [UA W/MICROSCOPIC] [URIN] Stat
[2019-11-24 13:11] VITALS: BP 102/81; PULSE 65
[2019-11-26 04:08] LABS: CHLAMYDIA TRACHOMATIS, NAA Negative (Negative); NEISSERIA GONORRHOEAE, NAA Negative (Negative)
== END 2019-11-24 13:13 | disposition home or self-care (01) ==
LOC: FB.ED 11:22
DX: R10.32 Left lower quadrant pain (principal); F32.9 Major depressive disorder, single episode, unspecified; Z88.1 Allergy status to other antibiotic agents; Z88.6 Allergy status to analgesic agent; Z79.899 Other long term (current) drug therapy
CPT/HCPCS: 36415; 80053; 81001; 85025; 86140; 87491; 87591; 99284

== ENCOUNTER 2019-12-21 12:19 | Emergency (ER) | payer MEDICARE, MEDICAID ==
[2019-12-21] MEDS ORDERED: Sodium Chloride 0.9% 10 ML Syringe FLUSH PRN (12:38)
[2019-12-21] MEDS ORDERED: Ondansetron 4 MG/2 ML SDV IVPUSH ONE (12:40)
[2019-12-21] MEDS ORDERED: Sodium Chloride 0.9% 1,000 ML IV SCH (12:45)
[2019-12-21] MEDS ORDERED: Morphine 2 MG/ML SYRINGE IVPUSH ONE (12:51)
[2019-12-21] MEDS ORDERED: Pantoprazole 80 MG in Sodium Chloride 0.9% 100 ML IV ONE (12:51)
[2019-12-21] MEDS ORDERED: Iopamidol 755 Mg/ML 100 ML Bottle IV ONE (13:49)
[2019-12-21 15:07] VITALS: BP 109/71; PULSE 71
--- NOTE | 2019-12-21 15:30 | CT ---
INDICATION: Epigastric pain, left lower quadrant pain/coffee ground emesis. CT ABDOMEN AND PELVIS WITH CONTRAST: Spiral 3.75 mm axial sections were obtained were obtained 12/21/19 and compared with 08/04/19 utilizing oral and IV contrast (77 mL Isovue 370 at 2 cc per second with 100-second delay) with sagittal and reconstructions. Total exam DLP was 353.59 mGy-cm. The lower lung williamson and pleural spaces visualized were unremarkable. The heart did not appear increased in size or grossly enlarged. No pericardial effusion was seen. The liver, spleen, adrenals, kidneys, pancreas and common bile duct in the head of the pancreas, appeared unremarkable. No retroperitoneal mass was identified. The appendix appeared normal visualized on coronal images 28 to 37. No evidence of free air or bowel obstruction was identified. For the most part, the stomach filled to normal contour. There was some prominence of the thickness of the wall of the gastric antrum raising question of peptic ulcer disease - correlate clinically. The gallbladder is absent with clips at the cystic duct compatible with cholecystectomy. There is new low density abnormality in the uterus, both anteriorly and posteriorly raising question of infection, possible abscess formation in the myometrium with somewhat prominent endometrial cavity raising question of endometritis. Inferior to the uterus in what appears to be the vagina there is abnormal fluid collection, etiology indeterminate. The possibility of abscess formation in that area or vaginitis would be a consideration. What appear to be the ovaries were not grossly abnormal with a follicle suggested at what appears to be the right ovary. Urinary bladder had a normal appearance. IMPRESSION: There now appears to be an abnormality of the uterine wall - myometrium raising question of low-density finding such as inflammatory disease, possibly abscess formations as well as possible vaginitis with what appears to be fluid in the vagina. Findings should be correlated clinically. Additional physical examination may be warranted as well as ultrasound for further evaluation of these findings. No free air or bowel obstruction was identified - no definite free fluid was seen. Report was called to Dr. Simon at 1453 hours. [facility]
--- NOTE | 2019-12-21 15:35 | EDM.PDOC ---
ED HPI GENERAL MEDICAL PROBLEM - General Chief Complaint: Abdominal Pain Stated Complaint: ABD PAIN Time Seen by Provider: 12/21/19 15:10 Source of Information: Reports: Patient History Limitations: Reports: No Limitations - History of Present Illness INITIAL COMMENTS - FREE TEXT/NARRATIVE: Patient presented to the ED because of epigastric pain, nausea,and coffee-ground emesis x1 today. According to her she has been having this pain for maryan past month. She had this pain in the past which was treated with omeprazole, resolved then reoccurred 2 days ago. There in no urinary symptoms,fever or chills. There is no melena or hematochezia. Left Abdomen Pain Score (Numeric/FACES): 10 - Related Data Allergies Allergy/AdvReac Type Severity Reaction Status Date / Time azithromycin [From Zithromax] Allergy Cannot Verified 11/24/19 11:34 Remember ibuprofen Allergy Vomiting Verified 11/24/19 11:34 Home Meds: Home Meds Multivitamin [Multivitamins] 1 each PO DAILY 05/11/19 [History] Naproxen Sodium [Aleve] 220 mg PO BID PRN 05/11/19 [History] ARIPiprazole [Abilify] 10 mg PO DAILY 11/24/19 [History] [place] Carbonate 300 mg PO BEDTIME 11/24/19 [History] [place] Carbonate 600 mg PO DAILY 11/24/19 [History] Sennosides/Docusate Sodium [Senna-S] 1 tab PO DAILY 11/24/19 [History] Omeprazole 40 mg PO DAILY #60 tablet.dr 12/21/19 [Rx] Ondansetron [Zofran ODT] 4 mg PO Q4H PRN #7 tab.dis 12/21/19 [Rx] Past Medical History - Past Health History Medical/Surgical History: Denies Medical/Surgical History HEENT History: Reports: Other (See Below) Other HEENT History: Lt eye pain Gastrointestinal History: Reports: Cholelithiasis, Gastritis Genitourinary History: Reports: Pyelonephritis 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: , Other (See Below) Other DYNAMO TENDER History: [id number] Musculoskeletal History: Reports: Fracture Other Musculoskeletal History: hx fx R clavicle Neurological History: Reports: Migraines, Seizure, Other (See Below) Other Neuro History: pseudo-seizures Psychiatric History: Reports: Anxiety, Depression, Psych Hospitalization(s), Suicide Attempt, Other (See Below) Other Psychiatric History: hx of alcohol abuse - Infectious Disease History Infectious Disease History: Reports: Chicken Pox, Mumps - Past Surgical History HEENT Surgical History: Reports: Oral Surgery GI Surgical History: Reports: Cholecystectomy Female Surgical History: Reports: Section Other Female Surgeries/Procedures: CS x 1 Neurological Surgical History: Reports: None Musculoskeletal Surgical History: Reports: None Social & Family History - Family History Family Medical History: Noncontributory - Caffeine Use Caffeine Use: Reports: None - Living Situation & Occupation Living situation: Reports: Single Occupation: Employed ED ROS GENERAL - Review of Systems Review Of Systems: See Below Constitutional: Reports: No Symptoms HEENT: Reports: No Symptoms Respiratory: Reports: No Symptoms Cardiovascular: Reports: No Symptoms Endocrine: Reports: No Symptoms GI/Abdominal: Reports: Abdominal Pain, Constipation, Nausea, Vomiting. Denies: Black Stool, Bloody Stool : Reports: No Symptoms Musculoskeletal: Reports: No Symptoms Skin: Reports: No Symptoms Neurological: Reports: No Symptoms ED EXAM, GI/ABD - Physical Exam Exam: See Below Exam Limited By: No Limitations General Appearance: Alert, No Apparent Distress Ears: Normal External Exam, Normal Canal Nose: Normal Inspection, Normal Mucosa Throat/Mouth: Normal Inspection, Normal Lips Head: Atraumatic, Normocephalic Neck: Normal Inspection, Supple, Non-Tender, Full Range of Motion Respiratory/Chest: No Respiratory Distress, Lungs Clear, Normal Breath Sounds Cardiovascular: Normal Peripheral Pulses, Regular Rate, Rhythm, No Edema, No Gallop GI/Abdominal Exam: Normal Bowel Sounds, Soft, Non-Tender, No Organomegaly Back Exam: Normal Inspection, Full Range of Motion Course - Vital Signs Last Recorded V/S: Last Vital Signs Temp 36.9 C 12/21/19 15:06 Pulse 71 12/21/19 15:06 Resp 14 12/21/19 15:06 BP 109/71 12/21/19 15:06 Pulse Ox 100 12/21/19 15:06 - Orders/Labs/Meds Orders: Active Orders 24 hr Category Date Time Status Sodium Chloride 0.9% [Normal Saline] 1,000 ml Med 12/21/19 12:45 Active IV ASDIRECTED Sodium Chloride 0.9% [Saline Flush] Med 12/21/19 12:38 Active 10 ml FLUSH ASDIRECTED PRN Saline Lock Insert [OM.PC] Routine Oth 12/21/19 12:38 Ordered Medication Orders Sodium Chloride (Normal Saline) 1,000 mls @ 999 mls/hr IV ASDIRECTED MARGOT Last Admin: 12/21/19 13:20 Dose: 999 mls/hr Documented by: GALINA Sodium Chloride (Saline Flush) 10 ml FLUSH ASDIRECTED PRN PRN Reason: Keep Vein Open Last Admin: 12/21/19 13:19 Dose: 10 ml Documented by: GALINA Labs: Laboratory Tests 12/21/19 12/21/19 12/21/19 Range/Units 12:45 12:45 12:45 WBC (4.5-12.0) X10-3/uL RBC (3.23-5.20) x10(6)uL Hgb (11.5-15.5) g/dL Hct (30.0-51.3) % MCV (80-96) fL MCH (27.7-33.6) pg MCHC (32.2-35.4) g/dL RDW (11.5-15.5) % Plt Count (125-369) X10(3)uL MPV (7.4-10.4) fL Neut % (Auto) (46-82) % Lymph % (Auto) (13-37) % Menard % (Auto) (4-12) % Eos % (Auto) (1.0-5.0) % Baso % (Auto) (0-2) % Neut # (Auto) (1.6-8.3) # Lymph # (Auto) (0.6-5.0) # Menard # (Auto) (0.0-1.3) # Eos # (Auto) (0.0-0.8) # Baso # (Auto) (0.0-0.2) # Sodium (135-145) mmol/L Potassium (3.5-5.3) mmol/L Chloride (100-110) mmol/L Carbon Dioxide (21-32) mmol/L BUN (7-18) mg/dL Creatinine (0.55-1.02) mg/dL Est Cr Clr Drug Dosing Estimated GFR (MDRD) (>60) BUN/Creatinine Ratio (9-20) Glucose (80-116) mg/dL Calcium (8.6-10.2) mg/dL Total Bilirubin (0.1-1.3) mg/dL AST (5-25) IU/L ALT (12-36) U/L Alkaline Phosphatase (56-112) IU/L Total Protein (6.0-8.0) g/dL Albumin (3.5-5.2) g/dL Globulin g/dL Albumin/Globulin Ratio Amylase (25-115) U/L Lipase (73-393) U/L Urine Color Yellow (YELLOW) Urine Appearance Clear (CLEAR) Urine pH 7.0 H (5.0-6.5) Ur Specific [place] 1.005 L (1.010-1.025) Urine Protein Negative (NEGATIVE) mg/dL Urine Glucose (UA) Normal (NORMAL) mg/dL Urine Ketones Negative (NEGATIVE) mg/dL Urine Occult Blood Large H (NEGATIVE) Urine Nitrite Negative (NEGATIVE) Urine Bilirubin Negative (NEGATIVE) Urine Urobilinogen Normal (NEGATIVE) mg/dL Ur Leukocyte Esterase Negative (NEGATIVE) Urine RBC 10-20 H (0-5) Urine WBC 0-5 (0-5) Ur Squamous Epith Cells Few H (NS,R,O) Urine Bacteria Few H (NS) Urine HCG, Qual Negative (NEGATIVE) Urine Opiates Screen Negative (NEGATIVE) Ur Oxycodone Screen Negative (NEGATIVE) Ur Propoxyphene Screen Negative (NEGATIVE) Ur Barbituates Screen Negative (NEGATIVE) Ur Tricyclics Screen Negative (NEGATIVE) Ur Phencyclidine Scrn Negative (NEGATIVE) Ur Amphetamine Screen Negative (NEGATIVE) Urine MDMA Screen Negative (NEGATIVE) U Benzodiazepines Scrn Negative (NEGATIVE) U Cocaine Metab Screen Negative (NEGATIVE) U Marijuana (THC) Screen Negative (NEGATIVE) Ethyl Alcohol (<0.03) % 12/21/19 12/21/19 12/21/19 Range/Units 12:50 12:50 12:50 WBC 6.7 (4.5-12.0) X10-3/uL RBC 4.00 (3.23-5.20) x10(6)uL Hgb 11.9 (11.5-15.5) g/dL Hct 35.5 (30.0-51.3) % MCV 89.0 (80-96) fL MCH 29.7 (27.7-33.6) pg MCHC 33.4 (32.2-35.4) g/dL RDW 12.7 (11.5-15.5) % Plt Count 285 (125-369) X10(3)uL MPV 7.3 L (7.4-10.4) fL Neut % (Auto) 49.7 (46-82) % Lymph % (Auto) 40.7 H (13-37) % Menard % (Auto) 7.8 (4-12) % Eos % (Auto) 1 (1.0-5.0) % Baso % (Auto) 0 (0-2) % Neut # (Auto) 3.4 (1.6-8.3) # Lymph # (Auto) 2.7 (0.6-5.0) # Menard # (Auto) 0.5 (0.0-1.3) # Eos # (Auto) 0.1 (0.0-0.8) # Baso # (Auto) 0.0 (0.0-0.2) # Sodium 138 (135-145) mmol/L Potassium 3.8 (3.5-5.3) mmol/L Chloride 104 D (100-110) mmol/L Carbon Dioxide 31 (21-32) mmol/L BUN 6 L (7-18) mg/dL Creatinine 0.7 (0.55-1.02) mg/dL Est Cr Clr Drug Dosing TNP Estimated GFR (MDRD) > 60 (>60) BUN/Creatinine Ratio 8.6 L (9-20) Glucose 110 (80-116) mg/dL Calcium 8.8 (8.6-10.2) mg/dL Total Bilirubin 0.5 (0.1-1.3) mg/dL AST 14 D (5-25) IU/L ALT 16 D (12-36) U/L Alkaline Phosphatase 65 (56-112) IU/L Total Protein 7.6 (6.0-8.0) g/dL Albumin 3.8 (3.5-5.2) g/dL Globulin 3.8 g/dL Albumin/Globulin Ratio 1.0 Amylase 45 (25-115) U/L Lipase 117 (73-393) U/L Urine Color (YELLOW) Urine Appearance (CLEAR) Urine pH (5.0-6.5) Ur Specific [place] (1.010-1.025) Urine Protein (NEGATIVE) mg/dL Urine Glucose (UA) (NORMAL) mg/dL Urine Ketones (NEGATIVE) mg/dL Urine Occult Blood (NEGATIVE) Urine Nitrite (NEGATIVE) Urine Bilirubin (NEGATIVE) Urine Urobilinogen (NEGATIVE) mg/dL Ur Leukocyte Esterase (NEGATIVE) Urine RBC (0-5) Urine WBC (0-5) Ur Squamous Epith Cells (NS,R,O) Urine Bacteria (NS) Urine HCG, Qual (NEGATIVE) Urine Opiates Screen (NEGATIVE) Ur Oxycodone Screen (NEGATIVE) Ur Propoxyphene Screen (NEGATIVE) Ur Barbituates Screen (NEGATIVE) Ur Tricyclics Screen (NEGATIVE) Ur Phencyclidine Scrn (NEGATIVE) Ur Amphetamine Screen (NEGATIVE) Urine MDMA Screen (NEGATIVE) U Benzodiazepines Scrn (NEGATIVE) U Cocaine Metab Screen (NEGATIVE) U Marijuana (THC) Screen (NEGATIVE) Ethyl Alcohol (<0.03) % 12/21/19 Range/Units 12:50 WBC (4.5-12.0) X10-3/uL RBC (3.23-5.20) x10(6)uL Hgb (11.5-15.5) g/dL Hct (30.0-51.3) % MCV (80-96) fL MCH (27.7-33.6) pg MCHC (32.2-35.4) g/dL RDW (11.5-15.5) % Plt Count (125-369) X10(3)uL MPV (7.4-10.4) fL Neut % (Auto) (46-82) % Lymph % (Auto) (13-37) % Menard % (Auto) (4-12) % Eos % (Auto) (1.0-5.0) % Baso % (Auto) (0-2) % Neut # (Auto) (1.6-8.3) # Lymph # (Auto) (0.6-5.0) # Menard # (Auto) (0.0-1.3) # Eos # (Auto) (0.0-0.8) # Baso # (Auto) (0.0-0.2) # Sodium (135-145) mmol/L Potassium (3.5-5.3) mmol/L Chloride (100-110) mmol/L Carbon Dioxide (21-32) mmol/L BUN (7-18) mg/dL Creatinine (0.55-1.02) mg/dL Est Cr Clr Drug Dosing Estimated GFR (MDRD) (>60) BUN/Creatinine Ratio (9-20) Glucose (80-116) mg/dL Calcium (8.6-10.2) mg/dL Total Bilirubin (0.1-1.3) mg/dL AST (5-25) IU/L ALT (12-36) U/L Alkaline Phosphatase (56-112) IU/L Total Protein (6.0-8.0) g/dL Albumin (3.5-5.2) g/dL Globulin g/dL Albumin/Globulin Ratio Amylase (25-115) U/L Lipase (73-393) U/L Urine Color (YELLOW) Urine Appearance (CLEAR) Urine pH (5.0-6.5) Ur Specific [place] (1.010-1.025) Urine Protein (NEGATIVE) mg/dL Urine Glucose (UA) (NORMAL) mg/dL Urine Ketones (NEGATIVE) mg/dL Urine Occult Blood (NEGATIVE) Urine Nitrite (NEGATIVE) Urine Bilirubin (NEGATIVE) Urine Urobilinogen (NEGATIVE) mg/dL Ur Leukocyte Esterase (NEGATIVE) Urine RBC (0-5) Urine WBC (0-5) Ur Squamous Epith Cells (NS,R,O) Urine Bacteria (NS) Urine HCG, Qual (NEGATIVE) Urine Opiates Screen (NEGATIVE) Ur Oxycodone Screen (NEGATIVE) Ur Propoxyphene Screen (NEGATIVE) Ur Barbituates Screen (NEGATIVE) Ur Tricyclics Screen (NEGATIVE) Ur Phencyclidine Scrn (NEGATIVE) Ur Amphetamine Screen (NEGATIVE) Urine MDMA Screen (NEGATIVE) U Benzodiazepines Scrn (NEGATIVE) U Cocaine Metab Screen (NEGATIVE) U Marijuana (THC) Screen (NEGATIVE) Ethyl Alcohol < 0.03 (<0.03) % Meds: Medications Generic Name Dose Route Start Last Admin Trade Name Freq PRN Reason Stop Dose Admin Sodium Chloride 1,000 mls @ 999 mls/hr 12/21/19 12:45 12/21/19 13:20 Normal Saline IV 999 mls/hr ASDIRECTED MARGOT Administration Sodium Chloride 10 ml 12/21/19 12:38 12/21/19 13:19 Saline Flush FLUSH 10 ml ASDIRECTED PRN Administration Keep Vein Open Discontinued Medications Generic Name Dose Route Start Last Admin Trade Name Kelly PRN Reason Stop Dose Admin Pantoprazole Sodium 80 mg/ 100 mls @ 200 mls/hr 12/21/19 12:51 12/21/19 13:18 Sodium Chloride IV 12/21/19 13:20 200 mls/hr .BOLUS ONE Administration Iopamidol 100 ml 12/21/19 13:49 12/21/19 14:07 Isovue-370 (76%) IV 12/21/19 13:50 77 ml ONETIME ONE Administration Morphine Sulfate 2 mg 12/21/19 12:51 12/21/19 13:19 Morphine IVPUSH 12/21/19 12:52 2 mg ONETIME ONE Administration Ondansetron HCl 4 mg 12/21/19 12:40 12/21/19 13:18 Zofran IVPUSH 12/21/19 12:41 4 mg ONETIME ONE Administration Departure - Departure Time of Disposition: 15:30 Disposition: Home, Self-Care 01 Condition: Good Clinical Impression: Gastritis, GERD (gastroesophageal reflux disease) - Discharge Information Prescriptions: Omeprazole 40 mg PO DAILY #60 tablet. Ondansetron [Zofran ODT] 4 mg PO Q4H PRN #7 tab.dis PRN Reason: Nausea Instructions: Gastritis, Adult, [id number], Heartburn, [id number] Referrals: Kayla Kearney FOLDER TIER [Primary Care Provider] - Forms: ED Department Discharge Additional Instructions: Please read discharge instructions on Gastritis/GERD NO NSAIDS like aspirin,ibuprofen,aleve until you have your upper and lower endoscopy Take omeprazole 40 mg once daily Zofran ODT 4 mg every 4 hours as needed for nausea Follow up with your doctor this coming week Sepsis Event Note (ED) - Evaluation Sepsis Screening Result: No Definite Risk - Focused Exam Vital Signs: Vital Signs Temp Pulse Resp BP Pulse Ox 12/21/19 15:06 36.9 C 71 14 109/71 100 - My Orders Last 24 Hours: My Active Orders 12/21/19 12:38 Sodium Chloride 0.9% [Saline Flush] 10 ml FLUSH ASDIRECTED PRN Saline Lock Insert [OM.PC] Routine 12/21/19 12:45 Sodium Chloride 0.9% [Normal Saline] 1,000 ml IV ASDIRECTED - Assessment/Plan Last 24 Hours: My Active Orders 12/21/19 12:38 Sodium Chloride 0.9% [Saline Flush] 10 ml FLUSH ASDIRECTED PRN Saline Lock Insert [OM.PC] Routine 12/21/19 12:45 Sodium Chloride 0.9% [Normal Saline] 1,000 ml IV ASDIRECTED
== END 2019-12-21 15:50 | disposition home or self-care (01) ==
LOC: FB.ED 12:19
DX: K29.70 Gastritis, unspecified, without bleeding (principal); K21.9 Gastro-esophageal reflux disease without esophagitis; Z79.899 Other long term (current) drug therapy; Z88.1 Allergy status to other antibiotic agents; Z88.6 Allergy status to analgesic agent
CPT/HCPCS: 36415; 74177; 80053; 80305-QW; 80307; 81001; 81025; 82150; 83690; 85025; 96361; 96374; 96375; 99284-25; C9113; J2270; J2405; J7030; J7050; Q9967

== ENCOUNTER 2020-01-05 12:25 | Emergency (ER) | payer MEDICARE, MEDICAID ==
--- NOTE | 2020-01-05 12:57 | EDM.PDOC ---
ED HPI GENERAL MEDICAL PROBLEM - General Stated Complaint: L SIDED PAIN Time Seen by Provider: 01/05/20 13:00 Source of Information: Reports: Patient History Limitations: Reports: No Limitations - History of Present Illness INITIAL COMMENTS - FREE TEXT/NARRATIVE: pt comes from home ambulatory with c/o sever epigastric/chest pain radiating to her neck and left side of abdomen, tells me this has been going on for 2 months now, feels it with same severity day and night, worse when laying to left side, report dysphagia and that she has been having only liquid diet , denies weight loss, diarrhea or any other associated sx , states she was seen by her PCP and was prescribed something for GERD but she used it only for one day and stopped as sghe was unable to swallow the pills. pt appear comfortable here, report numbness at left arm, denies any resp or CV sx or other neuro sx . - Related Data Allergies Allergy/AdvReac Type Severity Reaction Status Date / Time azithromycin [From Zithromax] Allergy Cannot Verified 11/24/19 11:34 Remember ibuprofen Allergy Vomiting Verified 11/24/19 11:34 Home Meds: Home Meds Multivitamin [Multivitamins] 1 each PO DAILY 05/11/19 [History] Naproxen Sodium [Aleve] 220 mg PO BID PRN 05/11/19 [History] ARIPiprazole [Abilify] 10 mg PO DAILY 11/24/19 [History] [place] Carbonate 300 mg PO BEDTIME 11/24/19 [History] [place] Carbonate 600 mg PO DAILY 11/24/19 [History] Sennosides/Docusate Sodium [Senna-S] 1 tab PO DAILY 11/24/19 [History] Omeprazole 40 mg PO DAILY #60 tablet.dr 12/21/19 [Rx] Ondansetron [Zofran ODT] 4 mg PO Q4H PRN #7 tab.dis 12/21/19 [Rx] Omeprazole Magnesium [Prilosec] 20 mg PO BID #14 suspdr.pkt 01/05/20 [Rx] Past Medical History - Past Health History Medical/Surgical History: Denies Medical/Surgical History HEENT History: Reports: Other (See Below) Other HEENT History: Lt eye pain Gastrointestinal History: Reports: Cholelithiasis, Gastritis Genitourinary History: Reports: Pyelonephritis RECORD PRODUCER History: Reports: , Other (See Below) Other RECORD PRODUCER History: [id number] Musculoskeletal History: Reports: Fracture Other Musculoskeletal History: hx fx R clavicle Neurological History: Reports: Migraines, Seizure, Other (See Below) Other Neuro History: pseudo-seizures Psychiatric History: Reports: Anxiety, Depression, Psych Hospitalization(s), Suicide Attempt, Other (See Below) Other Psychiatric History: hx of alcohol abuse - Infectious Disease History Infectious Disease History: Reports: Chicken Pox, Mumps - Past Surgical History HEENT Surgical History: Reports: Oral Surgery GI Surgical History: Reports: Cholecystectomy Female Surgical History: Reports: Section Other Female Surgeries/Procedures: CS x 1 Neurological Surgical History: Reports: None Musculoskeletal Surgical History: Reports: None Social & Family History - Family History Family Medical History: Noncontributory - Caffeine Use Caffeine Use: Reports: None - Living Situation & Occupation Living situation: Reports: Single Occupation: Employed ED ROS GENERAL - Review of Systems Review Of Systems: See Below Constitutional: Reports: No Symptoms, Fatigue. Denies: Fever, Chills HEENT: Reports: No Symptoms, Vertigo Cardiovascular: Reports: No Symptoms GI/Abdominal: Reports: Abdominal Pain. Denies: Constipation, Diarrhea : Reports: No Symptoms Musculoskeletal: Reports: No Symptoms Skin: Reports: No Symptoms Neurological: Reports: No Symptoms Psychiatric: Reports: No Symptoms ED EXAM, GENERAL - Physical Exam Exam: See Below Exam Limited By: No Limitations General Appearance: Alert, No Apparent Distress Eye Exam: Right Eye: Globe Laceration, Bilateral Eye: Normal Inspection Ears: Normal External Exam Nose: Normal Inspection Throat/Mouth: Normal Inspection, Normal Lips Head: Atraumatic, Normocephalic Neck: Normal Inspection, Supple, Non-Tender Respiratory/Chest: No Respiratory Distress, Lungs Clear, Normal Breath Sounds Cardiovascular: Normal Peripheral Pulses, Regular Rate, Rhythm GI/Abdominal: Normal Bowel Sounds, Soft, Tender, Other (tender over the epigastric area. ). No: Guarding, Rebound Back Exam: Normal Inspection. No: CVA Tenderness (R), CVA Tenderness (L) Extremities: Normal Inspection Neurological: Alert, Oriented, CN II-XII Intact. No: Sensory/Motor Deficit Psychiatric: Normal Affect Skin Exam: Warm Course - Vital Signs Text/Narrative:: labs results were explained to pt and are unremarkable , EKG shows NSR. UA has danii few WBC but neg nitrate and neg leukocytes esterase. pt has chronic dysphagia and epigastric pain, she needs GI evaluation, and she is stable to do so as out patient . will Rx meanwhile Prilosec elixir. Last Recorded V/S: Last Vital Signs Temp 36.8 C 01/05/20 12:25 Pulse 89 01/05/20 12:25 Resp 16 01/05/20 12:25 BP 124/73 01/05/20 12:25 Pulse Ox 99 01/05/20 12:25 - Orders/Labs/Meds Labs: Laboratory Tests 01/05/20 01/05/20 01/05/20 Range/Units 13:10 13:10 13:10 WBC 5.6 (4.5-12.0) X10-3/uL RBC 3.90 (3.23-5.20) x10(6)uL Hgb 11.4 L (11.5-15.5) g/dL Hct 34.2 (30.0-51.3) % MCV 87.7 (80-96) fL MCH 29.3 (27.7-33.6) pg MCHC 33.4 (32.2-35.4) g/dL RDW 12.8 (11.5-15.5) % Plt Count 271 (125-369) X10(3)uL Sodium 140 (135-145) mmol/L Potassium 3.8 (3.5-5.3) mmol/L Chloride 102 (100-110) mmol/L Carbon Dioxide 31 (21-32) mmol/L BUN 12 (7-18) mg/dL Creatinine 0.8 (0.55-1.02) mg/dL Est Cr Clr Drug Dosing 75.87 mL/min Estimated GFR (MDRD) > 60 (>60) BUN/Creatinine Ratio 15.0 (9-20) Glucose 89 (80-116) mg/dL Calcium 8.8 (8.6-10.2) mg/dL Total Bilirubin 0.5 (0.1-1.3) mg/dL AST 17 D (5-25) IU/L ALT 15 (12-36) U/L Alkaline Phosphatase 69 (56-112) IU/L Total Protein 7.4 (6.0-8.0) g/dL Albumin 3.9 (3.5-5.2) g/dL Globulin 3.5 g/dL Albumin/Globulin Ratio 1.1 Amylase 33 (25-115) U/L Lipase 88 (73-393) U/L Urine Color (YELLOW) Urine Appearance (CLEAR) Urine pH (5.0-6.5) Ur Specific [place] (1.010-1.025) Urine Protein (NEGATIVE) mg/dL Urine Glucose (UA) (NORMAL) mg/dL Urine Ketones (NEGATIVE) mg/dL Urine Occult Blood (NEGATIVE) Urine Nitrite (NEGATIVE) Urine Bilirubin (NEGATIVE) Urine Urobilinogen (NEGATIVE) mg/dL Ur Leukocyte Esterase (NEGATIVE) Urine RBC (0-5) Urine WBC (0-5) Ur Squamous Epith Cells (NS,R,O) Urine Bacteria (NS) 01/05/20 Range/Units 13:21 WBC (4.5-12.0) X10-3/uL RBC (3.23-5.20) x10(6)uL Hgb (11.5-15.5) g/dL Hct (30.0-51.3) % MCV (80-96) fL MCH (27.7-33.6) pg MCHC (32.2-35.4) g/dL RDW (11.5-15.5) % Plt Count (125-369) X10(3)uL Sodium (135-145) mmol/L Potassium (3.5-5.3) mmol/L Chloride (100-110) mmol/L Carbon Dioxide (21-32) mmol/L BUN (7-18) mg/dL Creatinine (0.55-1.02) mg/dL Est Cr Clr Drug Dosing mL/min Estimated GFR (MDRD) (>60) BUN/Creatinine Ratio (9-20) Glucose (80-116) mg/dL Calcium (8.6-10.2) mg/dL Total Bilirubin (0.1-1.3) mg/dL AST (5-25) IU/L ALT (12-36) U/L Alkaline Phosphatase (56-112) IU/L Total Protein (6.0-8.0) g/dL Albumin (3.5-5.2) g/dL Globulin g/dL Albumin/Globulin Ratio Amylase (25-115) U/L Lipase (73-393) U/L Urine Color Yellow (YELLOW) Urine Appearance Slightly cloudy (CLEAR) Urine pH 6.5 (5.0-6.5) Ur Specific [place] 1.020 (1.010-1.025) Urine Protein Negative (NEGATIVE) mg/dL Urine Glucose (UA) Normal (NORMAL) mg/dL Urine Ketones 15 H (NEGATIVE) mg/dL Urine Occult Blood Negative (NEGATIVE) Urine Nitrite Negative (NEGATIVE) Urine Bilirubin Negative (NEGATIVE) Urine Urobilinogen Normal (NEGATIVE) mg/dL Ur Leukocyte Esterase Negative (NEGATIVE) Urine RBC 0-5 (0-5) Urine WBC 10-20 H (0-5) Ur Squamous Epith Cells Occasional (NS,R,O) Urine Bacteria Moderate H (NS) Meds: Medications Discontinued Medications Generic Name Dose Route Start Last Admin Trade Name Freq PRN Reason Stop Dose Admin Ketorolac Tromethamine 60 mg 01/05/20 12:59 01/05/20 13:15 Toradol IM 01/05/20 13:00 60 mg ONETIME ONE Administration Departure - Departure Time of Disposition: 14:28 Disposition: Home, Self-Care 01 Clinical Impression: Dysphagia - Discharge Information Sepsis Event Note (ED) - Focused Exam Vital Signs: Vital Signs Temp Pulse Resp BP Pulse Ox 01/05/20 12:25 36.8 C 89 16 124/73 99
[2020-01-05] MEDS ORDERED: Ketorolac 60 MG/2 ML SDV IM ONE (12:59)
[2020-01-05 14:49] VITALS: BP 108/78; PULSE 78
== END 2020-01-05 14:46 | disposition home or self-care (01) ==
LOC: FB.ED 12:25
DX: R13.10 Dysphagia, unspecified (principal); F41.9 Anxiety disorder, unspecified; F32.9 Major depressive disorder, single episode, unspecified; Z88.6 Allergy status to analgesic agent; Z88.1 Allergy status to other antibiotic agents; Z79.899 Other long term (current) drug therapy
CPT/HCPCS: 36415; 80053; 81001; 82150; 83690; 85027; 93005; 96372; 99284; J1885; 99283

== ENCOUNTER 2020-05-28 15:44 | Emergency (ER) | payer MEDICARE, MEDICAID ==
--- NOTE | 2020-05-28 16:33 | EDM.PDOC ---
ED HPI GENERAL MEDICAL PROBLEM - General Chief Complaint: Chest Pain Stated Complaint: SOB, DIFFICULTY BREATHING Time Seen by Provider: 05/28/20 16:05 Source of Information: Reports: Patient History Limitations: Reports: No Limitations - History of Present Illness INITIAL COMMENTS - FREE TEXT/NARRATIVE: States she has pain int he anterior chest wall for the past 24 hrs , pain with attempts to touch the chest wall noted pt was in the freezer at work ( ?[employer] ) for about 3 hrs yesterday . 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 - Related Data Allergies Allergy/AdvReac Type Severity Reaction Status Date / Time azithromycin [From Zithromax] Allergy Cannot Verified 11/24/19 11:34 Remember ibuprofen Allergy Vomiting Verified 11/24/19 11:34 Home Meds: Home Meds Multivitamin [Multivitamins] 1 each PO DAILY 05/11/19 [History] Naproxen Sodium [Aleve] 220 mg PO BID PRN 05/11/19 [History] ARIPiprazole [Abilify] 10 mg PO DAILY 11/24/19 [History] [place] Carbonate 300 mg PO BEDTIME 11/24/19 [History] [place] Carbonate 600 mg PO DAILY 11/24/19 [History] Sennosides/Docusate Sodium [Senna-S] 1 tab PO DAILY 11/24/19 [History] Omeprazole 40 mg PO DAILY #60 tablet.dr 12/21/19 [Rx] Ondansetron [Zofran ODT] 4 mg PO Q4H PRN #7 tab.dis 12/21/19 [Rx] Omeprazole Magnesium [Prilosec] 20 mg PO BID #14 suspdr.pkt 01/05/20 [Rx] Diclofenac Sodium [Voltaren 1% Gel] 1 applic TOP BID PRN #100 gm 05/28/20 [Rx] Past Medical History - Past Health History Medical/Surgical History: Denies Medical/Surgical History HEENT History: Reports: Other (See Below) Other HEENT History: Lt eye pain Gastrointestinal History: Reports: Cholelithiasis, Gastritis Genitourinary History: Reports: Pyelonephritis [employer] History: Reports: , Other (See Below) Other [employer] History: [id number] Musculoskeletal History: Reports: Fracture Other Musculoskeletal History: hx fx R clavicle Neurological History: Reports: Migraines, Seizure, Other (See Below) Other Neuro History: pseudo-seizures Psychiatric History: Reports: Anxiety, Depression, Psych Hospitalization(s), Suicide Attempt, Other (See Below) Other Psychiatric History: hx of alcohol abuse - Infectious Disease History Infectious Disease History: Reports: Chicken Pox, Mumps - Past Surgical History HEENT Surgical History: Reports: Oral Surgery GI Surgical History: Reports: Cholecystectomy Female Surgical History: Reports: Section Other Female Surgeries/Procedures: CS x 1 Neurological Surgical History: Reports: None Musculoskeletal Surgical History: Reports: None Social & Family History - Family History Family Medical History: No Pertinent Family History - Caffeine Use Caffeine Use: Reports: None - Living Situation & Occupation Living situation: Reports: Single Occupation: Employed ED ROS GENERAL - Review of Systems Review Of Systems: See Below Constitutional: Denies: Chills, Malaise, Weakness HEENT: Reports: No Symptoms Respiratory: Denies: Shortness of Breath, Wheezing, Pleuritic Chest Pain, Cough, Sputum Cardiovascular: Reports: No Symptoms Endocrine: Reports: No Symptoms, Fatigue GI/Abdominal: Reports: No Symptoms : Reports: No Symptoms Musculoskeletal: Reports: No Symptoms Skin: Reports: No Symptoms ED EXAM, GENERAL - Physical Exam Exam: See Below Exam Limited By: No Limitations General Appearance: Alert, WD/WN, No Apparent Distress Eye Exam: Bilateral Eye: EOMI Ears: Normal External Exam Ear Exam: Bilateral Ear: Auricle Normal, Canal Normal Nose: Normal Inspection Throat/Mouth: Normal Inspection, Normal Oropharynx Head: Atraumatic, Normocephalic Neck: Supple, Non-Tender, Lymphadenopathy (R) Respiratory/Chest: Lungs Clear, Normal Breath Sounds, No Accessory Muscle Use, Other (reproducible chest wall pain noted on the anterior chest) Back Exam: Normal Inspection, Full Range of Motion Extremities: Normal Inspection, Normal Range of Motion Neurological: Alert, Oriented, CN II-XII Intact Psychiatric: Normal Affect Skin Exam: Dry, Intact Lymphatic: No Adenopathy Course - Orders/Labs/Meds Orders: Active Orders 24 hr Category Date Time Status Chest 1V Frontal [CR] Stat Exams 05/28/20 16:20 Taken Labs: Laboratory Tests 05/28/20 Range/Units 15:55 SARS-CoV-2 RNA (DARCIE) Negative (NEGATIVE) Meds: Medications Discontinued Medications Generic Name Dose Route Start Last Admin Trade Name Freq PRN Reason Stop Dose Admin Ketorolac Tromethamine 60 mg 05/28/20 16:21 05/28/20 16:42 Toradol IM 05/28/20 16:22 60 mg ONETIME ONE Administration Departure - Departure Time of Disposition: 17:10 Disposition: Home, Self-Care 01 Condition: Good Clinical Impression: Costochondritis, acute, Costochondral chest pain - Discharge Information *PRESCRIPTION DRUG MONITORING PROGRAM REVIEWED*: Not Applicable *COPY OF PRESCRIPTION DRUG MONITORING REPORT IN PATIENT BERTIN: Not Applicable Instructions: Costochondritis, [id number], Nonspecific Chest Pain, Adult, [id number], Chest Wall Pain, [id number] Forms: ED Department Discharge Additional Instructions: 1) use warm compress to the affected area 3 times daily 2) Ok to use ibuprofen as needed for pain 3) Follow up with your PCP if symptoms do not resolve as expected - My Orders Last 24 Hours: My Active Orders 05/28/20 16:20 Chest 1V Frontal [CR] Stat - Assessment/Plan Last 24 Hours: My Active Orders 05/28/20 16:20 Chest 1V Frontal [CR] Stat
[2020-05-28] MEDS: Ketorolac 60 MG/2 ML SDV IM ONE (16:42)
--- NOTE | 2020-05-28 17:24 | CR ---
INDICATION: Left upper chest wall pain. CHEST ONE VIEW: An AP portable upright view of the chest was obtained 05/28/20 and compared with 08/21/19 again revealing the heart to be normal in size and shape. Mediastinum was unremarkable. Except for a minimal dextroconvex scoliosis of the upper middle thoracic spine, bony structures appear to be grossly intact. A definite active infiltrate, effusion, contusion, or pneumothorax was not identified. IMPRESSION: No acute process. MTDD
[2020-05-28 17:31] VITALS: BP 118/74; PULSE 82
== END 2020-05-28 17:20 | disposition home or self-care (01) ==
LOC: FB.ED 15:44
DX: M94.0 Chondrocostal junction syndrome [Tietze] (principal); F41.9 Anxiety disorder, unspecified; F32.9 Major depressive disorder, single episode, unspecified; Z79.899 Other long term (current) drug therapy; Z20.828 Contact with and (suspected) exposure to other viral communicable diseases; Z88.1 Allergy status to other antibiotic agents; Z88.6 Allergy status to analgesic agent
CPT/HCPCS: 71045; 96372; 99285-25; J1885; U0002

== ENCOUNTER 2021-01-12 01:50 | Emergency (ER) | payer MEDICARE, MEDICAID ==
--- NOTE | 2021-01-12 03:02 | EDM.PDOC ---
ED HPI GENERAL MEDICAL PROBLEM - General Chief Complaint: DOGGER Problem Stated Complaint: 6 WEEKS Time Seen by Provider: 01/12/21 02:40 Source of Information: Reports: Patient, Old Records - History of Present Illness INITIAL COMMENTS - FREE TEXT/NARRATIVE: 30-year-old lady came to the emergency department due to vaginal bleeding. She reports that she is 6 weeks . Review of past medical records shows that she has a significant history including [id number]. She states that she felt well until this evening. Began have pain in the right shoulder that she describes as "somebody trying to cut down through her shoulder. The pain radiates to her abdomen. She states that she has filled 3 pads since 8 PM last night. At approximately 6 to 7 hours. She states that the vaginal bleeding and vaginal discomfort are similar to her prior 8 spontaneous abortions but that the shoulder pain is new. She cannot think of any trauma or any reason for the shoulder pain. She had no prior concerns or complaints. - Related Data Allergies Allergy/AdvReac Type Severity Reaction Status Date / Time azithromycin [From Zithromax] Allergy Hives and Verified 01/12/21 02:28 Vomiting ibuprofen Allergy Vomiting Uncoded 01/12/21 02:26 tylenol Allergy Vomiting Uncoded 01/12/21 02:20 Home Meds: Home Meds .Iron 1 dose PO ASDIRECTED 01/12/21 [History] Pnv No.95/Ferrous Fum/Folic AC [ Tablet] 1 tab PO DAILY 01/12/21 [History] Past Medical History - Past Health History Medical/Surgical History: Denies Medical/Surgical History HEENT History: Reports: Other (See Below) Other HEENT History: Lt eye pain Gastrointestinal History: Reports: Cholelithiasis, Gastritis Genitourinary History: Reports: Pyelonephritis DOGGER History: Reports: , Other (See Below) Other DOGGER History: [id number] Musculoskeletal History: Reports: Fracture Other Musculoskeletal History: hx fx R clavicle Neurological History: Reports: Migraines, Seizure, Other (See Below) Other Neuro History: pseudo-seizures Psychiatric History: Reports: Addiction, Anxiety, Depression, Psych Hospitalization(s), Suicide Attempt, Other (See Below) Other Psychiatric History: hx of alcohol abuse - Infectious Disease History Infectious Disease History: Reports: Chicken Pox, Mumps - Past Surgical History HEENT Surgical History: Reports: Oral Surgery GI Surgical History: Reports: Cholecystectomy Female Surgical History: Reports: Section Other Female Surgeries/Procedures: CS x 1 Neurological Surgical History: Reports: None Musculoskeletal Surgical History: Reports: None Social & Family History - Family History Family Medical History: No Pertinent Family History - Caffeine Use Caffeine Use: Reports: Coffee - Living Situation & Occupation Living situation: Reports: Single Occupation: Employed ED ROS GENERAL - Review of Systems Review Of Systems: See Below Constitutional: Reports: No Symptoms HEENT: Reports: No Symptoms Respiratory: Reports: No Symptoms Cardiovascular: Reports: No Symptoms Endocrine: Reports: No Symptoms GI/Abdominal: Reports: Abdominal Pain : Reports: Pain, Other (Vaginal bleeding, 6 weeks gestation) Musculoskeletal: Reports: Arm Pain Skin: Reports: No Symptoms Neurological: Reports: No Symptoms Psychiatric: Reports: Depression Hematologic/Lymphatic: Reports: No Symptoms Immunologic: Reports: No Symptoms ED EXAM - Physical Exam Exam: See Below Exam Limited By: No Limitations General Appearance: Alert Eye Exam: Bilateral Eye: EOMI Head: Atraumatic, Normocephalic Respiratory/Chest: No Respiratory Distress, Lungs Clear, Normal Breath Sounds Cardiovascular: Regular Rate, Rhythm, No Edema, No Murmur GI/Abdominal Exam: Normal Bowel Sounds, Distended, Tender Back Exam: Normal Inspection. No: CVA Tenderness (R), CVA Tenderness (L) Extremities: Normal Inspection Neurological: Alert, Oriented, CN II-XII Intact, Normal Cognition Psychiatric: Depressed Mood Skin Exam: Warm, Dry, Intact Course - Vital Signs Text/Narrative:: Review of lab work showed increased RDW is likely secondary to patient's complaint of bleeding. hCG is positive. Abdomen is firm and tender. Consultation with emergency medicine at [facility] approved transfer to emergency department for OB ultrasound and further evaluation. Last Recorded V/S: Last Vital Signs Temp 37.0 C 01/12/21 03:45 Pulse 79 01/12/21 03:45 Resp 16 01/12/21 03:45 BP 108/76 01/12/21 03:45 Pulse Ox 99 01/12/21 03:45 - Orders/Labs/Meds Labs: Laboratory Tests 01/12/21 01/12/21 01/12/21 Range/Units 02:05 02:05 03:03 WBC 7.8 (3.0-10.3) x10-3/uL RBC 4.33 (3.60-5.20) x10(6)uL Hgb 12.9 (11.4-15.5) g/dL Hct 38.3 (34.2-48.2) % MCV 88.5 (76.7-100.5) fL MCH 29.7 (23.9-33.9) pg MCHC 33.6 (31.9-34.8) g/dL RDW 21.1 H (12.3-16.5) % Plt Count 230 (151-488) x10(3)uL MPV 7.1 (7.1-12.4) fL Neut % (Auto) 62.0 (30.8-76.2) % Lymph % (Auto) 28.5 (18.4-52.1) % [place] % (Auto) 7.6 (4.4-15.7) % Eos % (Auto) 1.5 (0.6-8.1) % Baso % (Auto) 0.4 (0.2-1.5) % Neut # (Auto) 4.8 (1.5-6.3) x10-3/uL Lymph # (Auto) 2.2 (1.0-4.4) x10-3/uL [place] # (Auto) 0.6 (0.3-1.0) x10-3/uL Eos # (Auto) 0.1 (0.0-0.8) x10-3/uL Baso # (Auto) 0.0 (0.0-0.1) x10-3/uL Sodium (135-145) mmol/L Potassium (3.5-5.3) mmol/L Chloride (100-110) mmol/L Carbon Dioxide (21-32) mmol/L BUN (7-18) mg/dL Creatinine (0.55-1.02) mg/dL Est Cr Clr Drug Dosing mL/min Estimated GFR (MDRD) (>60) BUN/Creatinine Ratio (9-20) Glucose (80-116) mg/dL Calcium (8.6-10.2) mg/dL Total Bilirubin (0.1-1.3) mg/dL AST (5-25) IU/L ALT (12-36) U/L Alkaline Phosphatase (56-112) IU/L Total Protein (6.0-8.0) g/dL Albumin (3.5-5.2) g/dL Globulin g/dL Albumin/Globulin Ratio Urine Color Yellow (YELLOW) Urine Appearance Clear (CLEAR) Urine pH 7.0 H (5.0-6.5) Ur Specific [place] 1.015 (1.010-1.025) Urine Protein Negative (NEGATIVE) mg/dL Urine Glucose (UA) Normal (NORMAL) mg/dL Urine Ketones Negative (NEGATIVE) mg/dL Urine Occult Blood Negative (NEGATIVE) Urine Nitrite Negative (NEGATIVE) Urine Bilirubin Negative (NEGATIVE) Urine Urobilinogen Normal (NEGATIVE) mg/dL Ur Leukocyte Esterase Negative (NEGATIVE) Urine RBC 0-5 (0-5) Urine WBC 0-5 (0-5) Ur Squamous Epith Cells Few H (NS,R,O) Urine Bacteria Few H (NS) Urine HCG, Qual Positive H (NEGATIVE) 01/12/21 Range/Units 03:03 WBC (3.0-10.3) x10-3/uL RBC (3.60-5.20) x10(6)uL Hgb (11.4-15.5) g/dL Hct (34.2-48.2) % MCV (76.7-100.5) fL MCH (23.9-33.9) pg MCHC (31.9-34.8) g/dL RDW (12.3-16.5) % Plt Count (151-488) x10(3)uL MPV (7.1-12.4) fL Neut % (Auto) (30.8-76.2) % Lymph % (Auto) (18.4-52.1) % [place] % (Auto) (4.4-15.7) % Eos % (Auto) (0.6-8.1) % Baso % (Auto) (0.2-1.5) % Neut # (Auto) (1.5-6.3) x10-3/uL Lymph # (Auto) (1.0-4.4) x10-3/uL [place] # (Auto) (0.3-1.0) x10-3/uL Eos # (Auto) (0.0-0.8) x10-3/uL Baso # (Auto) (0.0-0.1) x10-3/uL Sodium 138 (135-145) mmol/L Potassium 4.0 (3.5-5.3) mmol/L Chloride 104 (100-110) mmol/L Carbon Dioxide 29 (21-32) mmol/L BUN 10 (7-18) mg/dL Creatinine 0.6 (0.55-1.02) mg/dL Est Cr Clr Drug Dosing 100.27 mL/min Estimated GFR (MDRD) > 60 (>60) BUN/Creatinine Ratio 16.7 (9-20) Glucose 101 (80-116) mg/dL Calcium 8.9 (8.6-10.2) mg/dL Total Bilirubin 0.2 (0.1-1.3) mg/dL AST 34 H D (5-25) IU/L ALT 61 H D (12-36) U/L Alkaline Phosphatase 67 (56-112) IU/L Total Protein 7.2 (6.0-8.0) g/dL Albumin 3.7 (3.5-5.2) g/dL Globulin 3.5 g/dL Albumin/Globulin Ratio 1.1 Urine Color (YELLOW) Urine Appearance (CLEAR) Urine pH (5.0-6.5) Ur Specific [place] (1.010-1.025) Urine Protein (NEGATIVE) mg/dL Urine Glucose (UA) (NORMAL) mg/dL Urine Ketones (NEGATIVE) mg/dL Urine Occult Blood (NEGATIVE) Urine Nitrite (NEGATIVE) Urine Bilirubin (NEGATIVE) Urine Urobilinogen (NEGATIVE) mg/dL Ur Leukocyte Esterase (NEGATIVE) Urine RBC (0-5) Urine WBC (0-5) Ur Squamous Epith Cells (NS,R,O) Urine Bacteria (NS) Urine HCG, Qual (NEGATIVE) Departure - Departure Time of Disposition: 04:15 Disposition: DC/Tfer to Other 70 Clinical Impression: Threatened in early - Discharge Information *PRESCRIPTION DRUG MONITORING PROGRAM REVIEWED*: Not Applicable *COPY OF PRESCRIPTION DRUG MONITORING REPORT IN PATIENT BERTIN: Not Applicable Instructions: Threatened Miscarriage, [id number] Referrals: Kayla Kearney NP [Primary Care Provider] - Forms: ED Department Discharge Sepsis Event Note (ED) - Evaluation Sepsis Screening Result: No Definite Risk - Focused Exam Vital Signs: Vital Signs Temp Pulse Resp BP Pulse Ox 01/12/21 03:45 37.0 C 79 16 108/76 99 01/12/21 01:55 37.1 C 90 16 112/72 98
[2021-01-12 03:51] VITALS: BP 108/76; PULSE 79
== END 2021-01-12 04:15 | disposition other institution (70) ==
LOC: FB.ED 01:50
DX: O20.0 Threatened abortion (principal); Z3A.01 Less than 8 weeks gestation of pregnancy; Z88.1 Allergy status to other antibiotic agents; Z88.8 Allergy status to other drugs, medicaments and biological substances
CPT/HCPCS: 36415; 80053; 81001; 81025; 85025; 99285

== ENCOUNTER 2021-02-08 04:47 | Emergency (ER) | payer MEDICARE, MEDICAID ==
--- NOTE | 2021-02-08 05:36 | EDM.PDOC ---
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 She states that she is 11 weeks . She states she was in good health before earlier this morning. She states she got up to go to the restroom because she usually has to get up and urinate several times overnight and when she went to the restroom she had significant bleeding with several clots. She states that she called the on-call nurse hotline but before she could come to the hospital she passed out for about an hour or so. When she woke up she called the ambulance and came to the emergency room for evaluation. - Related Data Allergies Allergy/AdvReac Type Severity Reaction Status Date / Time azithromycin [From Zithromax] Allergy Hives and Verified 01/12/21 02:28 Vomiting ibuprofen Allergy Vomiting Uncoded 01/12/21 02:26 tylenol Allergy Vomiting Uncoded 01/12/21 02:20 Home Meds: Home Meds .Iron 1 dose PO ASDIRECTED 01/12/21 [History] Pnv No.95/Ferrous Fum/Folic AC [ Tablet] 1 tab PO DAILY 01/12/21 [History] metroNIDAZOLE [Metronidazole] 500 mg PO DAILY 02/08/21 [History] Past Medical History - Past Health History Medical/Surgical History: Denies Medical/Surgical History HEENT History: Reports: Other (See Below) Other HEENT History: Left eye pain. Gastrointestinal History: Reports: Cholelithiasis, Gastritis Genitourinary History: Reports: Pyelonephritis WEB WEAVER History: Reports: , Other (See Below) Other WEB WEAVER History: [id number] x 1. Musculoskeletal History: Reports: Fracture Other Musculoskeletal History: History fracture of right clavicle. Neurological History: Reports: Migraines, Seizure, Other (See Below) Other Neuro History: Pseudo-seizures. Psychiatric History: Reports: Addiction, Anxiety, Depression, Psych Hospitalization(s), Suicide Attempt, Other (See Below) Other Psychiatric History: History of alcohol abuse. - Infectious Disease History Infectious Disease History: Reports: Chicken Pox, Mumps - Past Surgical History HEENT Surgical History: Reports: Oral Surgery Other HEENT Surgeries/Procedures: [place] teeth removed. GI Surgical History: Reports: Cholecystectomy Female Surgical History: Reports: Section Other Female Surgeries/Procedures: CS x 1 Neurological Surgical History: Reports: None Musculoskeletal Surgical History: Reports: None Social & Family History - Family History Family Medical History: No Pertinent Family History - Tobacco Use Tobacco Use Status *Q: Unknown Ever Used Tobacco - Caffeine Use Caffeine Use: Reports: None - Living Situation & Occupation Living situation: Reports: Single Occupation: Employed ED ROS GENERAL - Review of Systems Review Of Systems: See Below Constitutional: Reports: No Symptoms HEENT: Reports: No Symptoms Respiratory: Reports: No Symptoms Cardiovascular: Reports: No Symptoms Endocrine: Reports: No Symptoms GI/Abdominal: Reports: Abdominal Pain : Reports: No Symptoms Musculoskeletal: Reports: No Symptoms Skin: Reports: No Symptoms Neurological: Reports: No Symptoms Psychiatric: Reports: No Symptoms Hematologic/Lymphatic: Reports: No Symptoms Immunologic: Reports: No Symptoms ED EXAM - Physical Exam Exam: See Below Exam Limited By: No Limitations General Appearance: Anxious, Mild Distress Eye Exam: Bilateral Eye: EOMI Head: Atraumatic, Normocephalic Respiratory/Chest: No Respiratory Distress, Lungs Clear, Normal Breath Sounds Cardiovascular: Normal Peripheral Pulses, Regular Rate, Rhythm, No Murmur GI/Abdominal Exam: Tender. No: Rigid Heart Tones: Present Heart Tones per Min: 140 Back Exam: No: CVA Tenderness (R), CVA Tenderness (L) Extremities: Normal Inspection Neurological: Alert, Oriented, CN II-XII Intact, Normal Cognition Psychiatric: Depressed Mood Skin Exam: Warm, Dry, Intact Course - Vital Signs Text/Narrative:: Hemoglobin, blood pressure, heart rate, within normal limits. heart tones stated via hand-held Doppler rate estimated approximately 140 bpm, strong. I spoke with on-call OB, Dr. Chung. I informed her that the patient had abdominal pain that was improving, no significant bleeding at this time, stable vital signs, heart tones present via hand-held Doppler. Dr. Chung recommended that the patient go to the emergency department if she had unstable vital signs, severe bleeding (more than 1 pad per hour for more than 2 consecut kyung hours or bleeding that cannot be controlled by a single pad), and she stated she will send a message to the patient's OB. The patient's OB will contact her with further instructions such as coming to the office or outpatient ultrasound. Review of the records with Dr. Chung revealed that subchorionic hemorrhage has expanded from approximately 1 to 2 cm to approximately 4 cm. The most recent ultrasound was performed on 02/05/2021. Last Recorded V/S: Last Vital Signs Temp 36.7 C 02/08/21 04:50 Pulse 82 02/08/21 04:50 Resp 16 02/08/21 04:50 BP 108/75 02/08/21 04:50 Pulse Ox 100 02/08/21 04:50 - Orders/Labs/Meds Orders: Active Orders 24 hr Category Date Time Status CBC WITH AUTO DIFF [HEME] Stat Lab 02/08/21 05:20 Ordered HCG QUANTITATIVE [CHEM] Stat Lab 02/08/21 05:19 Ordered UA W/MICROSCOPIC [URIN] Stat Lab 02/08/21 05:19 Ordered Departure - Departure Time of Disposition: 06:35 Disposition: Home, Self-Care 01 Clinical Impression: Threatened affecting intrauterine , Subchorionic hemorrhage in first trimester - Discharge Information *PRESCRIPTION DRUG MONITORING PROGRAM REVIEWED*: Not Applicable *COPY OF PRESCRIPTION DRUG MONITORING REPORT IN PATIENT BERTIN: Not Applicable Instructions: Threatened Miscarriage, Subchorionic Hematoma Referrals: Kayla Kearney NP [Primary Care Provider] - Nitin Art MD [Ordering Only Provider] - Additional Instructions: I instructed the patient to go to the emergency room immediately if she has increased bleeding, severe abdominal pain, or if she has difficulty with dizziness/syncope. Advised the patient to follow-up with her OB today. Breast understanding and agreement. Sepsis Event Note (ED) - Evaluation Sepsis Screening Result: No Definite Risk - Focused Exam Vital Signs: Vital Signs Temp Pulse Resp BP Pulse Ox 02/08/21 04:50 36.7 C 82 16 108/75 100 - My Orders Last 24 Hours: My Active Orders 02/08/21 05:19 HCG QUANTITATIVE [CHEM] Stat UA W/MICROSCOPIC [URIN] Stat 02/08/21 05:20 CBC WITH AUTO DIFF [HEME] Stat - Assessment/Plan Last 24 Hours: My Active Orders 02/08/21 05:19 HCG QUANTITATIVE [CHEM] Stat UA W/MICROSCOPIC [URIN] Stat 02/08/21 05:20 CBC WITH AUTO DIFF [HEME] Stat
[2021-02-08 07:28] VITALS: BP 118/77; PULSE 78
== END 2021-02-08 07:07 | disposition home or self-care (01) ==
LOC: FB.ED 04:47
DX: O20.0 Threatened abortion (principal); Z88.1 Allergy status to other antibiotic agents; Z88.6 Allergy status to analgesic agent; Z88.5 Allergy status to narcotic agent
CPT/HCPCS: 36415; 81001; 84702; 85025; 99284

== ENCOUNTER 2021-02-22 23:04 | Emergency (ER) | payer MEDICARE, MEDICAID ==
[2021-02-23] MEDS ORDERED: Ondansetron 4 MG Tab.DIS PO ONE (00:53)
[2021-02-23] MEDS ORDERED: Ketorolac 30 MG/ML SDV IM ONE (00:53)
--- NOTE | 2021-02-23 01:00 | EDM.PDOC ---
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 no vag d/c not working, lives alone, has one child who lives with the father 13 wk gestation by her report, has been seen to previous times in ED for this preg, 1st OB visit on 03/[address] [place] [address] Reyes has had SAB x 9, always within a few days of positive preg test, usually at 2-3w gestation denies cigs/THC/street drugs had soft BM this AM no localized discomfort, has some N, no V labs in past 1-2m unremarkable did void 900 ml urine - Related Data Allergies Allergy/AdvReac Type Severity Reaction Status Date / Time azithromycin [From Zithromax] Allergy Hives and Verified 01/12/21 02:28 Vomiting ibuprofen Allergy Vomiting Uncoded 01/12/21 02:26 tylenol Allergy Vomiting Uncoded 01/12/21 02:20 Home Meds: Home Meds .Iron 1 dose PO ASDIRECTED 01/12/21 [History] Pnv No.95/Ferrous Fum/Folic AC [ Tablet] 1 tab PO DAILY 01/12/21 [History] metroNIDAZOLE [Metronidazole] 500 mg PO DAILY 02/08/21 [History] Past Medical History - Past Health History Medical/Surgical History: Denies Medical/Surgical History HEENT History: Reports: Other (See Below) Other HEENT History: Left eye pain. 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 Musculoskeletal History: Reports: Fracture Other Musculoskeletal History: History fracture of right clavicle. Neurological History: Reports: Migraines, Seizure, Other (See Below) Other Neuro History: Pseudo-seizures. Psychiatric History: Reports: Addiction, Anxiety, Depression, Psych Hospitalization(s), Suicide Attempt, Other (See Below) Other Psychiatric History: History of alcohol abuse. - Infectious Disease History Infectious Disease History: Reports: Chicken Pox, Mumps - Past Surgical History HEENT Surgical History: Reports: Oral Surgery Other HEENT Surgeries/Procedures: [place] teeth removed. GI Surgical History: Reports: Cholecystectomy Female Surgical History: Reports: Section Other Female Surgeries/Procedures: CS x 1 Neurological Surgical History: Reports: None Musculoskeletal Surgical History: Reports: None Social & Family History - Family History Family Medical History: No Pertinent Family History - Caffeine Use Caffeine Use: Reports: None - Living Situation & Occupation Living situation: Reports: Single Occupation: Employed ED ROS GENERAL - Review of Systems Review Of Systems: See Below Constitutional: Reports: No Symptoms. Denies: Fever HEENT: Reports: No Symptoms Respiratory: Reports: No Symptoms Cardiovascular: Reports: No Symptoms Endocrine: Reports: No Symptoms GI/Abdominal: Reports: Abdominal Pain, Nausea. Denies: Vomiting : Reports: No Symptoms Musculoskeletal: Reports: No Symptoms Skin: Reports: No Symptoms Neurological: Reports: No Symptoms Psychiatric: Reports: No Symptoms Hematologic/Lymphatic: Reports: No Symptoms Immunologic: Reports: No Symptoms ED EXAM, GI/ABD - Physical Exam Exam: See Below Exam Limited By: No Limitations General Appearance: Alert, WD/WN, No Apparent Distress, Other (alert, pleasant, nonill) Nose: Normal Inspection, Normal Mucosa, No Blood Throat/Mouth: Normal Inspection, Normal Lips, Normal Voice, No Airway Compromise Head: Atraumatic, Normocephalic Neck: Normal Inspection, Supple, Non-Tender, Full Range of Motion. No: Lymphadenopathy (R), Lymphadenopathy (L) Respiratory/Chest: No Respiratory Distress, Lungs Clear, Normal Breath Sounds, Chest Non-Tender Cardiovascular: Regular Rate, Rhythm, No Edema, No Murmur GI/Abdominal Exam: Normal Bowel Sounds, Soft, Other (no localized tender, no guard/rebound). No: Distended, Guarding, Rigid, Rebound, Abnormal Bowel Sounds Extremities: Normal Inspection, Non-Tender, No Pedal Edema Neurological: Alert, Oriented, CN II-XII Intact, Normal Cognition, No Motor/Sensory Deficits Psychiatric: Normal Affect, Normal Mood Skin Exam: Warm, Dry, Intact, Normal Color, No Rash Lymphatic: No Adenopathy Course - Orders/Labs/Meds Orders: Active Orders 24 hr Category Date Time Status HCG QUANTITATIVE [CHEM] Stat Lab 02/23/21 00:59 Ordered Labs: Laboratory Tests 02/22/21 02/23/21 02/23/21 Range/Units 23:10 01:18 01:18 WBC 9.7 (3.0-10.3) x10-3/uL RBC 3.78 (3.60-5.20) x10(6)uL Hgb 11.9 (11.4-15.5) g/dL Hct 34.6 (34.2-48.2) % MCV 91.4 (76.7-100.5) fL MCH 31.5 (23.9-33.9) pg MCHC 34.5 (31.9-34.8) g/dL RDW 15.1 (12.3-16.5) % Plt Count 228 (151-488) x10(3)uL MPV 6.9 L (7.1-12.4) fL Neut % (Auto) 67.9 (30.8-76.2) % Lymph % (Auto) 23.9 (18.4-52.1) % [place] % (Auto) 7.1 (4.4-15.7) % Eos % (Auto) 0.9 (0.6-8.1) % Baso % (Auto) 0.2 (0.2-1.5) % Neut # (Auto) 6.6 H (1.5-6.3) x10-3/uL Lymph # (Auto) 2.3 (1.0-4.4) x10-3/uL [place] # (Auto) 0.7 (0.3-1.0) x10-3/uL Eos # (Auto) 0.1 (0.0-0.8) x10-3/uL Baso # (Auto) 0.0 (0.0-0.1) x10-3/uL C-Reactive Protein 0.3 L (0.5-0.9) mg/dL Urine Color Yellow (YELLOW) Urine Appearance Slightly cloudy (CLEAR) Urine pH 7.0 H (5.0-6.5) Ur Specific [place] 1.010 (1.010-1.025) Urine Protein Negative (NEGATIVE) mg/dL Urine Glucose (UA) Normal (NORMAL) mg/dL Urine Ketones Negative (NEGATIVE) mg/dL Urine Occult Blood Negative (NEGATIVE) Urine Nitrite Negative (NEGATIVE) Urine Bilirubin Negative (NEGATIVE) Urine Urobilinogen Normal (NEGATIVE) mg/dL Ur Leukocyte Esterase Moderate H (NEGATIVE) Urine RBC 0-5 (0-5) Urine WBC 5-10 H (0-5) Ur Squamous Epith Cells Moderate H (NS,R,O) Urine Bacteria Few H (NS) Meds: Medications Discontinued Medications Generic Name Dose Route Start Last Admin Trade Name Kelly PRN Reason Stop Dose Admin Ketorolac Tromethamine 60 mg 02/23/21 00:53 Ketorolac 30 Mg/Ml Sdv IM 02/23/21 00:54 ONETIME ONE Ondansetron HCl 4 mg 02/23/21 00:53 Ondansetron 4 Mg Tab.Dis PO 02/23/21 00:54 ONETIME ONE - Re-Assessments/Exams Free Text/Narrative Re-Assessment/Exam: 02/23/21 02:19 pt was feeling better at time of d/c CBC/CRP/UA all neg hx and PE are both nonspecific, none localized symptoms, do not appear related Departure - Departure Time of Disposition: 02:16 Disposition: Home, Self-Care 01 Condition: Good Clinical Impression: Abdominal cramping, First trimester - Discharge Information *PRESCRIPTION DRUG MONITORING PROGRAM REVIEWED*: Not Applicable *COPY OF PRESCRIPTION DRUG MONITORING REPORT IN PATIENT BERTIN: Not Applicable Referrals: Kayla Kearney NP [Primary Care Provider] - Additional Instructions: Your blood and urine tests are within normal limits. There is no evidence of infection. For discomfort, take acetaminophen 500 mg 2 tabs every 6 hours as needed. Use moist heat in tub or shower for 10 minutes 4 times a day as needed. Maintain fluids. Get adequate rest. Keep your OB appointment on March 04. See your physician earlier if you have additional symptoms. - My Orders Last 24 Hours: My Active Orders 02/23/21 00:59 HCG QUANTITATIVE [CHEM] Stat - Assessment/Plan Last 24 Hours: My Active Orders 02/23/21 00:59 HCG QUANTITATIVE [CHEM] Stat
[2021-02-24 05:39] VITALS: BP 100/70; PULSE 92
== END 2021-02-23 02:40 | disposition home or self-care (01) ==
LOC: FB.ED 23:04
DX: O99.891 Other specified diseases and conditions complicating pregnancy (principal); R10.2 Pelvic and perineal pain; Z88.1 Allergy status to other antibiotic agents; Z88.6 Allergy status to analgesic agent; Z3A.13 13 weeks gestation of pregnancy
CPT/HCPCS: 36415; 81001; 84702; 85025; 86140; 99284